=== PATIENT | male | born 1965 | race Caucasian/White ===

== ENCOUNTER 2018-04-22 13:22 | Emergency (ER) | payer OTHER, SELFPAY ==
[2018-04-22 13:29] VITALS: BP 172/108; PULSE 81; RESP 18; TEMP 36.7; O2SAT 99
--- NOTE | 2018-04-22 14:31 | ED.GENADUL ---
Disposition Clinical Impression: Hand laceration Disposition: HOME Condition: Stable Instructions: Care For Your Stitches (ED), Laceration (ED) Additional Instructions: Keep wound clean and dry and return in 7-10 days for suture removal. Please leave the initial dressing on for minimum of 24 hours before moving. Return immediately for any signs of infection otherwise take your antibiotics as prescribed and he may utilize [id number] acetaminophen or Motrin as needed for pain control. Prescriptions: Cephalexin [Keflex] 500 mg PO Q6H #11 cap Referrals: [facility] Emergency Dept. [Outside] (Return to the emergency department 7-10 days for suture removal. Return immediately for any signs of infection.) Medical Decision Making - Medical Decision Making 2 cm laceration dorsal aspect of right hand. Patient has full function and strength distal to the injury and while there is visible tendon in the wound there appears to be no damage and tendon is intact. Patient has no loss of sensation distal to the injury as well. See procedural note for closure of wound. Given potential for contaminated wound although no foreign materials were seen but occupation is very dirty environment patient placed upon Keflex for 3 days prophylactically. Otherwise patient encouraged to return in 7-10 days for suture removal. After discussion of diagnosis and plan of care with patient patient agreed and stated no further needs, questions, or concerns at this time. History of Present Illness - General Chief complaint: Laceration Stated complaint: LACERATION Time Seen by Provider: 04/22/18 13:37 Source: patient, RN notes reviewed Mode of arrival: ambulatory Limitations: no limitations - History of Present Illness Initial comments: n patient reports approximately 50 minutes prior to arrival he was holding a piece of metal while somebody was cutting it with a saws all in the saw excellently slipped lacerating the dorsal aspect of his left hand. He states full movement and sensation distal to the injury and no loss of strength but decent bleeding laceration. Patient does state that he had a tetanus within the last couple years. Patient denies any other injury or trauma. Onset/Timin -: minutes(s) Location: left, upper extremity Severity scale (1-10): 3 Quality: aching Consistency: constant Improves with: none Worsens with: none Associated Symptoms: denies other symptoms Treatments Prior to Arrival: none - Related Data Aspirin/Acetaminophen/Caffeine [Excedrin Migraine Caplet] 1 - 2 each PO PRN 07/11/13 Aspirin 325 mg PO DAILY 01/26/18 Ibuprofen [Motrin] 600 mg PO TID #15 tab 01/26/18 Amlodipine Besylate 5 mg PO DAILY #90 tab-cap 03/19/18 Losartan [Cozaar] 50 mg PO DAILY #90 tab-cap 03/19/18 Cephalexin [Keflex] 500 mg PO Q6H #11 cap 04/22/18 Allergies Allergy/AdvReac Type Severity Reaction Status Date / Time shellfish derived Allergy Severe THROAT Unverified 04/22/18 13:30 CLOSES Review of Systems Constitutional: no symptoms reported Respiratory: no symptoms reported Cardiovascular: denies: syncope Musculoskeletal: as per HPI Skin: as per HPI Comment: All other systems reviewed and negative Past Medical History - Past Medical History Medical history: hypertension Surgical history: non-contributory, other (Knee arthroscopy) - Social History Smoking status: current everyday smoker Alcohol use: occasionally Drug use: none Living Situation: lives with family General Exam - General Limitations: no limitations General appearance: alert, in no apparent distress - Head Head exam: Present: atraumatic, normocephalic - Respiratory Respiratory exam: Absent: respiratory distress - Cardiovascular Cardiovascular Exam: Present: regular rate, normal rhythm - Expanded Upper Extremity Exam Left Elbow exam: Present: normal inspection Forearm Wrist exam: Present: normal inspection Hand Wrist exam: Present: full ROM, laceration (2 cm laceration to the dorsal aspect of the second metacarpal that is approximately midshaft-to distal third.), other (Appropriate tendon strength and function to index finger.). Absent: abrasion, ecchymosis, deformity, crepidus, dislocation, erythema Neuro motor exam: Present: wrist extension intact, thumb opposition intact, thumb IP flexion intact, thumb adduction intact, fingers 2-5 abduction intact Neurosensory exam: Present: 2-point discrimination, radial nerve intact, ulnar nerve intact, median nerve intact Vascular: Present: normal capillary refill, radial pulse (2+) - Neurological Exam Neurological exam: Present: alert, oriented X3. Absent: altered - Skin Skin exam: Present: warm, dry Course Vital Signs - 24 hr 04/22/18 13:29 Temperature 36.7 C Pulse 81 Respiratory 18 Rate Blood Pressure 172/108 Pulse Oximetry 99 Procedures - Laceration Repair Consent Obtained: Verbal consent Copious Irrigation performed: Yes Laceration Depth: Tendon visible Bleeding Type/Amount: Moderate Complexity: Simple Anesthetic: Local, Lidocaine 1%, With Epi Amount of Anesthetic (mls): 4 Material: Vicryl (Ethilon) Suture Size: 4-0 Suture Number: 3
--- NOTE | 2018-04-22 14:34 | ED.GENADUL_ITS ---
Disposition Clinical Impression: Hand laceration Disposition: HOME Condition: Stable Instructions: Care For Your Stitches (ED), Laceration (ED) Additional Instructions: Keep wound clean and dry and return in 7-10 days for suture removal. Please leave the initial dressing on for minimum of 24 hours before moving. Return immediately for any signs of infection otherwise take your antibiotics as prescribed and he may utilize [id number] acetaminophen or Motrin as needed for pain control. Prescriptions: Cephalexin [Keflex] 500 mg PO Q6H #11 cap Referrals: [facility] Emergency Dept. [Outside] (Return to the emergency department 7-10 days for suture removal. Return immediately for any signs of infection.) Medical Decision Making - Medical Decision Making 2 cm laceration dorsal aspect of right hand. Patient has full function and strength distal to the injury and while there is visible tendon in the wound there appears to be no damage and tendon is intact. Patient has no loss of sensation distal to the injury as well. See procedural note for closure of wound. Given potential for contaminated wound although no foreign materials were seen but occupation is very dirty environment patient placed upon Keflex for 3 days prophylactically. Otherwise patient encouraged to return in 7-10 days for suture removal. After discussion of diagnosis and plan of care with patient patient agreed and stated no further needs, questions, or concerns at this time. History of Present Illness - General Chief complaint: Laceration Stated complaint: LACERATION Time Seen by Provider: 04/22/18 13:37 Source: patient, RN notes reviewed Mode of arrival: ambulatory Limitations: no limitations - History of Present Illness Initial comments: n patient reports approximately 50 minutes prior to arrival he was holding a piece of metal while somebody was cutting it with a saws all in the saw excellently slipped lacerating the dorsal aspect of his left hand. He states full movement and sensation distal to the injury and no loss of strength but decent bleeding laceration. Patient does state that he had a tetanus within the last couple years. Patient denies any other injury or trauma. Onset/Timin -: minutes(s) Location: left, upper extremity Severity scale (1-10): 3 Quality: aching Consistency: constant Improves with: none Worsens with: none Associated Symptoms: denies other symptoms Treatments Prior to Arrival: none - Related Data Aspirin/Acetaminophen/Caffeine [Excedrin Migraine Caplet] 1 - 2 each PO PRN Aspirin 325 mg PO DAILY 01/26/18 Ibuprofen [Motrin] 600 mg PO TID #15 tab 01/26/18 Amlodipine Besylate 5 mg PO DAILY #90 tab-cap 03/19/18 Losartan [Cozaar] 50 mg PO DAILY #90 tab-cap 03/19/18 Cephalexin [Keflex] 500 mg PO Q6H #11 cap 04/22/18 Allergies Allergy/AdvReac Type Severity Reaction Status Date / Time shellfish derived Allergy Severe THROAT Unverified 04/22/18 13:30 CLOSES Review of Systems Constitutional: no symptoms reported Respiratory: no symptoms reported Cardiovascular: denies: syncope Musculoskeletal: as per HPI Skin: as per HPI Comment: All other systems reviewed and negative Past Medical History - Past Medical History Medical history: hypertension Surgical history: non-contributory, other (Knee arthroscopy) - Social History Smoking status: current everyday smoker Alcohol use: occasionally Drug use: none Living Situation: lives with family General Exam - General Limitations: no limitations General appearance: alert, in no apparent distress - Head Head exam: Present: atraumatic, normocephalic - Respiratory Respiratory exam: Absent: respiratory distress - Cardiovascular Cardiovascular Exam: Present: regular rate, normal rhythm - Expanded Upper Extremity Exam Left Elbow exam: Present: normal inspection Forearm Wrist exam: Present: normal inspection Hand Wrist exam: Present: full ROM, laceration (2 cm laceration to the dorsal aspect of the second metacarpal that is approximately midshaft-to distal third.) , other (Appropriate tendon strength and function to index finger.). Absent: abrasion, ecchymosis, deformity, crepidus, dislocation, erythema Neuro motor exam: Present: wrist extension intact, thumb opposition intact, thumb IP flexion intact, thumb adduction intact, fingers 2-5 abduction intact Neurosensory exam: Present: 2-point discrimination, radial nerve intact, ulnar nerve intact, median nerve intact Vascular: Present: normal capillary refill, radial pulse (2+) - Neurological Exam Neurological exam: Present: alert, oriented X3. Absent: altered - Skin Skin exam: Present: warm, dry Course Vital Signs - 24 hr 04/22/18 13:29 Temperature 36.7 C Pulse 81 Respiratory 18 Rate Blood Pressure 172/108 Pulse Oximetry 99 Procedures - Laceration Repair Consent Obtained: Verbal consent Copious Irrigation performed: Yes Laceration Depth: Tendon visible Bleeding Type/Amount: Moderate Complexity: Simple Anesthetic: Local, Lidocaine 1%, With Epi Amount of Anesthetic (mls): 4 Material: Vicryl (Ethilon) Suture Size: 4-0 Suture Number: 3
[2018-04-22] MEDS: Cephalexin 500 MG CAP PO (14:39)
[2018-04-22 14:42] VITALS: BP 201/98; PULSE 74; RESP 18; TEMP 36.6; O2SAT 98
== END 2018-04-22 14:48 | disposition home or self-care (01) ==
PROVIDERS: Emergency Provider Student in an Organized Health Care Education/Training Program; PCP Emergency Medicine
DX: S61.412A Laceration without foreign body of left hand, initial encounter (principal); W31.1XXA Contact with metalworking machines, initial encounter; I10 Essential (primary) hypertension
CPT/HCPCS: 12001; 99283

== ENCOUNTER 2018-05-01 15:45 | Emergency (ER) | payer OTHER, SELFPAY ==
[2018-05-01 15:49] VITALS: BP 143/91; PULSE 62; RESP 14; TEMP 36.9; O2SAT 99
--- NOTE | 2018-05-01 15:50 | ED.GENADUL ---
Disposition Clinical Impression: Encounter for removal of sutures Disposition: HOME Condition: Stable Instructions: Stitches Removal (ED) Additional Instructions: Watch for any signs of infection return immediately if these occur. Referrals: Carlos Maki DO [Primary Care Provider] - (As needed for reassessment) Medical Decision Making - Medical Decision Making Patient presenting to the emergency department for removal of sutures. I placed the sutures 9 days ago. Wound has mild erythema surrounding the room but no purulent drainage, no streaking redness, patient denying fever chills. 3 sutures were removed and wound edges remained intact with no dehiscence or no complications. Patient was encouraged to watch for any signs of infection and return immediately if these occur. After discussion of diagnosis and plan of care with patient patient agreed and stated no further needs, questions, or concerns at this time. History of Present Illness - General Stated complaint: SUTURE REMOVAL Time Seen by Provider: 05/01/18 15:46 Source: patient, RN notes reviewed Mode of arrival: ambulatory Limitations: no limitations - History of Present Illness Initial comments: Patient presenting the emergency department for removal of stitches. Patient has laceration to the dorsal aspect of the left hand. Patient denies any pain or discomfort or signs of infection that occurred. Onset/Timin -: days(s) Location: left, upper extremity Associated Symptoms: denies other symptoms Treatments Prior to Arrival: none - Related Data Aspirin/Acetaminophen/Caffeine [Excedrin Migraine Caplet] 1 - 2 each PO PRN 07/11/13 Aspirin 325 mg PO DAILY 01/26/18 Ibuprofen [Motrin] 600 mg PO TID #15 tab 01/26/18 Amlodipine Besylate 5 mg PO DAILY #90 tab-cap 03/19/18 Losartan [Cozaar] 50 mg PO DAILY #90 tab-cap 03/19/18 Cephalexin [Keflex] 500 mg PO Q6H #11 cap 04/22/18 Allergies Allergy/AdvReac Type Severity Reaction Status Date / Time shellfish derived Allergy Severe THROAT Unverified 04/22/18 13:30 CLOSES Review of Systems Skin: as per HPI Past Medical History - Past Medical History Medical history: hypertension Surgical history: non-contributory, other (Knee arthroscopy) - Social History Alcohol use: occasionally Drug use: none General Exam - Extremities Exam Extremities exam: Present: full ROM, normal capillary refill, other (Patient has a laceration healing wound to the dorsal aspect of the left hand with [address] No dehiscence, no purulent drainage, and only very mild erythema surrounding the wound is noted.)
[2018-05-01 15:54] VITALS: BP 143/91; PULSE 62; RESP 14; TEMP 36.9; O2SAT 99
== END 2018-05-01 15:54 | disposition home or self-care (01) ==
PROVIDERS: Emergency Provider Emergency Medicine; PCP Emergency Medicine
DX: S61.412D Laceration without foreign body of left hand, subsequent encounter (principal); W31.1XXD Contact with metalworking machines, subsequent encounter; I10 Essential (primary) hypertension; Z48.02 Encounter for removal of sutures

== ENCOUNTER 2018-09-19 21:06 | Emergency (ER) | payer OTHER, SELFPAY ==
--- NOTE | 2018-09-19 21:10 | W.ED.GENAD ---
Discharge Plan Disposition Patient Disposition: HOME Condition: Stable Discharge Details Chief Complaint: Laceration Clinical Impression: Laceration of right thumb Primary Care Provider: Carlos Maki ED Provider: Darek Broussard Home Meds and New Rx's Prescriptions: No Action Excedrin Migraine 1 EACH tablet 1 - 2 ea PO PRN RF: 0 amlodipine 5 MG tablet 5 mg PO DAILY Qty: 90 RF: 4 aspirin 325 MG tablet 325 mg PO DAILY RF: 0 Discharge Instructions Instructions: Laceration (ED) Additional Instructions: return here in 7-10 days to have the sutures removed if redness spreads down the hand or you have yellow/white discharge return to the emergency department Medical Decision Making pt states earlier today he got his right posterior proximal thumb stuck in a valve of a fire truck. Did not fall or hit head. Has a 2cm v shaped laceration of proximal posterior thumb. Full rom and sensation is intact, doubt tendon or nerve injury. Will require sutures to repair. He states he has had tetanus vaccine within 5 years Differential Diagnosis laceration, abrasion HPI General Mode of arrival: ambulatory. Date/Time Provider Initiated Documentation: 09/19/18 21:10. Limitations to Documentation: no limitations. Information obtained by: patient. History of Present Illness 53 year old M presents to the emergency department with the chief complaint of right thumb lac, described as moderate, with intensity rated at 4. Quality is described as aching, and is localized to the right and upper extremity. Patient extremity. Patient started experiencing this hour(s) (4) and it has been constant. No relieving factors improve symptom(s), No exacerbating factors reported . Patient notes no other symptoms.. Patient did receive the following treatments prior to arrival, none Related Data Home Medications Medication Instructions Recorded Confirmed Excedrin Migraine 1 - 2 ea PO PRN 07/11/13 09/19/18 aspirin 325 mg PO DAILY 01/26/18 09/19/18 amlodipine 5 mg PO DAILY #90 tab-cap 03/19/18 09/19/18 Previous Rx's Medication Instructions Recorded amlodipine 5 mg PO DAILY #90 tab-cap 03/19/18 Allergies Allergy/AdvReac Type Severity Reaction Status Date / Time shellfish derived Allergy Severe THROAT Unverified 09/19/18 21:21 CLOSES Review of Systems Review of Systems All systems reviewed & are unremarkable except as noted in HPI and below Constitutional Denies chills, Denies fever(s) and Denies weakness ENT Denies change in voice Cardiovascular Denies chest pain and Denies dyspnea Respiratory Denies dyspnea Gastrointestinal Denies abdominal pain, Denies nausea and Denies vomiting Musculoskeletal Denies joint swelling Neurologic Denies weakness Psychiatric Denies depression [facility] Surgical History Arthroplasty of knee (~2005) Arthroscopy Exam Const General: no acute distress Orientation: alert HENMT Head: normal to inspection Ears: external ears normal General nose exam: external nose normal Mouth: moist mucous membranes Eyes General: appearance normal, both eyes and all related structures Neck Neck: normal visual inspection Resp Effort & Inspection: normal respiratory effort and able to speak in complete sentences Cardio Rate: regular rate Skin General skin exam: no rashes or lesions noted Neuro General: alert and oriented x3 Extrem General: full ROM and normal capillary refill Psych Mental Status: mental status grossly normal Procedures Laceration Laceration 1: Site: upper extremity Side (If applicable): right Size (cm): 2 Description: other (v shaped) Depth: simple, single layer Local Anesthetic: Lidocaine 1% and with Epi Amount of anesthesia used (mL): 5 Pre-repair: wound explored and irrigated extensively Skin layer closed with: nylon Size (cm): 5-0 Number of sutures: 3 Technique: simple, interrupted and other (also used skin adhesive to close the wound)
[2018-09-19 21:17] VITALS: BP 128/94; PULSE 90; RESP 15; TEMP 36.6; O2SAT 96
--- NOTE | 2018-09-19 21:24 | ED.GENADUL_ITS ---
Discharge Plan Disposition Patient Disposition: HOME Condition: Stable Discharge Details Chief Complaint: Laceration Clinical Impression: Laceration of right thumb Primary Care Provider: Carlos Maki ED Provider: Darek Broussard Home Meds and New Rx's Prescriptions: No Action Excedrin Migraine 1 EACH tablet 1 - 2 ea PO PRN RF: 0 amlodipine 5 MG tablet 5 mg PO DAILY Qty: 90 RF: 4 aspirin 325 MG tablet 325 mg PO DAILY RF: 0 Discharge Instructions Instructions: Laceration (ED) Additional Instructions: return here in 7-10 days to have the sutures removed if redness spreads down the hand or you have yellow/white discharge return to the emergency department Medical Decision Making pt states earlier today he got his right posterior proximal thumb stuck in a valve of a fire truck. Did not fall or hit head. Has a 2cm v shaped laceration of proximal posterior thumb. Full rom and sensation is intact, doubt tendon or nerve injury. Will require sutures to repair. He states he has had tetanus vaccine within 5 years Differential Diagnosis laceration, abrasion HPI General Mode of arrival: ambulatory . Date/Time Provider Initiated Documentation: 09/19/18 21:10 . Limitations to Documentation: no limitations . Information obtained by: patient . History of Present Illness 53 year old M presents to the emergency department with the chief complaint of right thumb lac, described as moderate, with intensity rated at 4. Quality is described as aching, and is localized to the right and upper extremity. Patient extremity. Patient started experiencing this hour(s) (4) and it has been constant. No relieving factors improve symptom(s), No exacerbating factors reported . Patient notes no other symptoms.. Patient did receive the following treatments prior to arrival, none Related Data Home Medications Medication Instructions Recorded Confirmed Excedrin Migraine 1 - 2 ea PO PRN 07/11/13 09/19/18 aspirin 325 mg PO DAILY 01/26/18 09/19/18 amlodipine 5 mg PO DAILY #90 tab-cap 03/19/18 09/19/18 Previous Rx's Medication Instructions Recorded amlodipine 5 mg PO DAILY #90 tab-cap 03/19/18 Allergies Allergy/AdvReac Type Severity Reaction Status Date / Time shellfish derived Allergy Severe THROAT Unverified 09/19/18 21:21 CLOSES Review of Systems Review of Systems All systems reviewed & are unremarkable except as noted in HPI and below Constitutional Denies chills, Denies fever(s) and Denies weakness ENT Denies change in voice Cardiovascular Denies chest pain and Denies dyspnea Respiratory Denies dyspnea Gastrointestinal Denies abdominal pain, Denies nausea and Denies vomiting Musculoskeletal Denies joint swelling Neurologic Denies weakness Psychiatric Denies depression [facility] Surgical History Arthroplasty of knee (~2005) Arthroscopy Exam Const General: no acute distress Orientation: alert HENMT Head: normal to inspection Ears: external ears normal General nose exam: external nose normal Mouth: moist mucous membranes Eyes General: appearance normal, both eyes and all related structures Neck Neck: normal visual inspection Resp Effort & Inspection: normal respiratory effort and able to speak in complete sentences Cardio Rate: regular rate Skin General skin exam: no rashes or lesions noted Neuro General: alert and oriented x3 Extrem General: full ROM and normal capillary refill Psych Mental Status: mental status grossly normal Procedures Laceration Laceration 1: Site: upper extremity Side (If applicable): right Size (cm): 2 Description: other (v shaped) Depth: simple, single layer Local Anesthetic: Lidocaine 1% and with Epi Amount of anesthesia used (mL): 5 Pre-repair: wound explored and irrigated extensively Skin layer closed with: nylon Size (cm): 5-0 Number of sutures: 3 Technique: simple, interrupted and other (also used skin adhesive to close the wound)
[2018-09-19 21:46] VITALS: BP 128/94; PULSE 90; RESP 15; TEMP 36.6; O2SAT 96
== END 2018-09-19 21:47 | disposition home or self-care (01) ==
LOC: ER 21:51
PROVIDERS: Emergency Provider Emergency Medicine; PCP Emergency Medicine
DX: S61.011A Laceration without foreign body of right thumb without damage to nail, initial encounter (principal); W26.9XXA Contact with unspecified sharp object(s), initial encounter
CPT/HCPCS: 12001

== ENCOUNTER 2019-02-22 21:26 | Emergency (ER) | payer OTHER, SELFPAY ==
[2019-02-22 21:32] VITALS: BP 155/99; PULSE 65; RESP 16; TEMP 36.7; O2SAT 100
[2019-02-22] MEDS: Tetracaine 0.5% 4 ML BTL (22:00)
[2019-02-22] MEDS: Erythromycin Ophth Oint 3.5 GM TUBE (22:00)
[2019-02-22] MEDS: Balanced Salt Solution 15 ML BTL (22:00)
--- NOTE | 2019-02-22 22:40 | W.ED.GENAD ---
Discharge Plan Disposition Patient Disposition: HOME Condition: Stable Discharge Details Chief Complaint: EyeProblem Clinical Impression: Corneal abrasion, left Primary Care Provider: Carlos Maki ED Provider: Mikey Quinones Home Meds and New Rx's Prescriptions: No Action Excedrin Migraine 1 EACH tablet 1 - 2 ea PO PRN RF: 0 amlodipine 5 MG tablet 5 mg PO DAILY Qty: 90 RF: 4 aspirin 325 MG tablet 325 mg PO DAILY RF: 0 Discharge Instructions Instructions: Corneal Abrasion (ED) Additional Instructions: Please use the provided ointment 4 times daily for the next 5 to 7 days. You should call [facility] tomorrow for reevaluation of your symptoms and return to the emergency department for any new or significant worsening of symptoms. Referrals: [facility] [Outside] - 1 day (call the office tomorrow morning for recheck ) Discharge Data Discharge Date/Time-TO BE ENTERED AT DEPARTURE: 02/22/19 22:58 Medical Decision Making Approximately 5 hours prior to arrival patient was cutting with a welding torch when a small jesi of metal struck his eye. Initially he felt the hot feeling but as the night went on pain increase. Patient denies any change in his vision and states he has poor vision in that eye anyways. Physical exam shows no obvious trauma to the head, with slit-lamp examination and dye application there is a corneal abrasion midline approximately 6:00 central to the cornea. Otherwise there is no obvious visible foreign body noted on exam and EOMs intact, no other acute findings. Patient's tetanus is up-to-date. Patient started on erythromycin ointment and was informed that he should follow-up with [facility] tomorrow for reevaluation. Return precautions discussed. After discussion of diagnosis and plan of care patient has no further needs, questions, or concerns and states clear understanding to return to the emergency department for any worsening symptoms. HPI General Mode of arrival: ambulatory. Date/Time Provider Initiated Documentation: 02/22/19 21:31. Limitations to Documentation: no limitations. Information obtained by: patient and RN notes reviewed. History of Present Illness 53 year old M presents to the emergency department with the chief complaint of left eye pain, possible foreign body, described as moderate, with intensity rated at 6. Quality is described as burning and sharp, and is localized to the eyes and left. Patient started experiencing this hour(s) (5) and it has been constant. Patient notes no other symptoms.. Patient did receive the following treatments prior to arrival, none Related Data Home Medications Medication Instructions Recorded Confirmed Excedrin Migraine 1 - 2 ea PO PRN 07/11/13 02/22/19 aspirin 325 mg PO DAILY 01/26/18 02/22/19 amlodipine 5 mg PO DAILY #90 tab-cap 03/19/18 02/22/19 Previous Rx's Medication Instructions Recorded amlodipine 5 mg PO DAILY #90 tab-cap 03/19/18 Allergies Allergy/AdvReac Type Severity Reaction Status Date / Time shellfish derived Allergy Severe THROAT Unverified 02/22/19 21:39 CLOSES General Stated Complaint: EyeProblem BENNY: 4 Review of Systems Constitutional Denies chills, Denies fever(s) and Denies headache(s) Eyes Reports as per HPI, Denies change in vision, Reports irritation, Denies loss of peripheral vision, Denies other visual disturbances, Reports eye pain, Denies requires corrective lenses, Denies seeing flashes and Reports photophobia ENT Denies headache(s) Neurologic Denies headache(s) [facility] Medical History Hypertension (Chronic) Surgical History Arthroplasty of knee (~2005) Arthroscopy Social History Smoking/Tobacco Use Status: Current every day Tobacco Type: smokeless tobacco Alcohol Intake: never Drug use: Never Substance use type: does not use Do you feel safe at home: Yes Do you feel safe in your relationship?: Yes Exam [facility] Head: normocephalic and atraumatic Eyes Visual Cox: normal visual cox by confrontation Alignment and Position: alignment normal and position normal Periorbital: periorbital findings normal Eyelids: eyelids normal Conjunctivae: conjunctivae normal Sclera: sclerae normal Cornea: corneas abnormal on the left fluorescein used and abrasion central, linear and at the following clock position (6); with no foreign body noted and fluorescein used Pupils: PERRL EOM: EOM intact bilaterally Course Vital Signs Temperature 36.7 C 02/22/19 21:32 Pulse 65 02/22/19 21:32 Respiratory Rate 16 02/22/19 21:32 Blood Pressure 155/99 H 02/22/19 21:32 Pulse Oximetry 100 02/22/19 21:32 Temperature 36.7 C 02/22/19 21:32 Temperature Source Skin 02/22/19 21:32 Pulse 65 02/22/19 21:32 Respiratory Rate 16 02/22/19 21:32 Respiratory Effort Non-Labored 02/22/19 21:39 Blood Pressure 155/99 H 02/22/19 21:32 Blood Pressure Position Sitting 02/22/19 21:32 Pulse Oximetry 100 02/22/19 21:32 Oxygen Delivery Method Room Air 02/22/19 21:32 Oxygen Flow Rate 0 02/22/19 21:32 Pain Level 6 02/22/19 21:32 Comment 02/22/19 21:32
--- NOTE | 2019-02-22 22:43 | ED.GENADUL_ITS ---
Discharge Plan Disposition Patient Disposition: HOME Condition: Stable Discharge Details Chief Complaint: EyeProblem Clinical Impression: Corneal abrasion, left Primary Care Provider: Carlos Maki ED Provider: Mikey Quinones Home Meds and New Rx's Prescriptions: No Action Excedrin Migraine 1 EACH tablet 1 - 2 ea PO PRN RF: 0 amlodipine 5 MG tablet 5 mg PO DAILY Qty: 90 RF: 4 aspirin 325 MG tablet 325 mg PO DAILY RF: 0 Discharge Instructions Instructions: Corneal Abrasion (ED) Additional Instructions: Please use the provided ointment 4 times daily for the next 5 to 7 days. You should call [facility] tomorrow for reevaluation of your symptoms and return to the emergency department for any new or significant worsening of symptoms. [facility] - [facility] (call the office tomorrow morning for recheck ) Discharge Data Discharge Date/Time-TO BE ENTERED AT DEPARTURE: 02/22/19 22:58 Medical Decision Making Approximately 5 hours prior to arrival patient was cutting with a welding torch when a small jesi of metal struck his eye. Initially he felt the hot feeling but as the night went on pain increase. Patient denies any change in his vision and states he has poor vision in that eye anyways. Physical exam shows no obvious trauma to the head, with slit-lamp examination and dye application there is a corneal abrasion midline approximately 6:00 central to the cornea. Otherwise there is no obvious visible foreign body noted on exam and EOMs intact, no other acute findings. Patient's tetanus is up-to-date. Patient started on erythromycin ointment and was informed that he should follow-up with [facility] tomorrow for reevaluation. Return precautions discussed. After discussion of diagnosis and plan of care patient has no further needs, questions, or concerns and states clear understanding to return to the emergency department for any worsening symptoms. HPI General Mode of arrival: ambulatory . Date/Time Provider Initiated Documentation: 02/22/19 21:31 . Limitations to Documentation: no limitations . Information obtained by: patient and RN notes reviewed . History of Present Illness 53 year old M presents to the emergency department with the chief complaint of left eye pain, possible foreign body, described as moderate, with intensity rated at 6. Quality is described as burning and sharp, and is localized to the eyes and left. Patient started experiencing this hour(s) (5) and it has been constant. Patient notes no other symptoms.. Patient did receive the following treatments prior to arrival, none Related Data Home Medications Medication Instructions Recorded Confirmed Excedrin Migraine 1 - 2 ea PO PRN 07/11/13 02/22/19 aspirin 325 mg PO DAILY 01/26/18 02/22/19 amlodipine 5 mg PO DAILY #90 tab-cap 03/19/18 02/22/19 Previous Rx's Medication Instructions Recorded amlodipine 5 mg PO DAILY #90 tab-cap 03/19/18 Allergies Allergy/AdvReac Type Severity Reaction Status Date / Time shellfish derived Allergy Severe THROAT Unverified 02/22/19 21:39 CLOSES General Stated Complaint: EyeProblem BENNY: 4 Review of Systems Constitutional Denies chills, Denies fever(s) and Denies headache(s) Eyes Reports as per HPI, Denies change in vision, Reports irritation, Denies loss of peripheral vision, Denies other visual disturbances, Reports eye pain, Denies requires corrective lenses, Denies seeing flashes and Reports photophobia ENT Denies headache(s) Neurologic Denies headache(s) [facility] Medical History Hypertension (Chronic) Surgical History Arthroplasty of knee (~2005) Arthroscopy Social History Smoking/Tobacco Use Status: Current every day Tobacco Type: smokeless tobacco Alcohol Intake: never Drug use: Never Substance use type: does not use Do you feel safe at home: Yes Do you feel safe in your relationship?: Yes Exam [facility] Head: normocephalic and atraumatic Eyes Visual Cox: normal visual cox by confrontation Alignment and Position: alignment normal and position normal Periorbital: periorbital findings normal Eyelids: eyelids normal Conjunctivae: conjunctivae normal Sclera: sclerae normal Cornea: corneas abnormal on the left fluorescein used and abrasion central, linear and at the following clock position (6); with no foreign body noted and fluorescein used Pupils: PERRL EOM: EOM intact bilaterally Course Vital Signs Temperature 36.7 C 02/22/19 21:32 Pulse 65 02/22/19 21:32 Respiratory Rate 16 02/22/19 21:32 Blood Pressure 155/99 H 02/22/19 21:32 Pulse Oximetry 100 02/22/19 21:32 Temperature 36.7 C 02/22/19 21:32 Temperature Source Skin 02/22/19 21:32 Pulse 65 02/22/19 21:32 Respiratory Rate 16 02/22/19 21:32 Respiratory Effort Non-Labored 02/22/19 21:39 Blood Pressure 155/99 H 02/22/19 21:32 Blood Pressure Position Sitting 02/22/19 21:32 Pulse Oximetry 100 02/22/19 21:32 Oxygen Delivery Method Room Air 02/22/19 21:32 Oxygen Flow Rate 0 02/22/19 21:32 Pain Level 6 02/22/19 21:32 Comment 02/22/19 21:32
[2019-02-22] MEDS: Fluorescein STRIPS 100/BOX 1 MG (23:15)
== END 2019-02-22 22:58 | disposition home or self-care (01) ==
PROVIDERS: Emergency Provider Nurse Practitioner Family; PCP Emergency Medicine
DX: S05.02XA Injury of conjunctiva and corneal abrasion without foreign body, left eye, initial encounter (principal); X58.XXXA Exposure to other specified factors, initial encounter
CPT/HCPCS: 99283

== ENCOUNTER 2020-11-05 15:40 | Outpatient (CLI) | payer SELFPAY ==
--- NOTE | 2020-11-05 15:30 | RT.EKG_ITS ---
APPROVED REPORT Exam: Resting ECG Patient Location: O HR:64 bpm ECG Measurements Heart Rate 64 AXIS KS 163 P 59 QRSd 94 QRS 20 QT 386 T 37 QTc 399 Conclusion Sinus rhythm...normal P axis, V-rate 60- 99
== END 2020-11-05 15:41 | disposition home or self-care (01) ==
LOC: DI.CM 15:41
PROVIDERS: PCP Emergency Medicine; Visit Provider Nurse Practitioner Family
DX: R07.9 Chest pain, unspecified (principal)
CPT/HCPCS: 93010

== ENCOUNTER 2020-11-08 01:38 | Outpatient (CLI) | payer SELFPAY ==
--- NOTE | 2020-11-08 13:37 | DI.RAD_ITS ---
EXAM: XR CHEST 2V PA LATERAL CLINICAL HISTORY: chest pain, s/p injury, V89.2XXA. TECHNIQUE: 2D digital imaging was performed. COMPARISON: CR CHEST 2 VIEWS PA,LAT from 11/12/2008 FINDINGS: Heart size is normal. The mediastinum is not widened. Lungs are clear. No infiltrates nor pleural effusions. Pneumothorax. No rib fractures evident. One lateral view inferior aspect of the sternum there is a subtle osseous irregularity which is more evident than on the actual dedicated sternal views. This is in the lower sternum. Correlation with site of tenderness is recommended IMPRESSION: No acute pulmonary findings.Sternal findings as above. Correlation with site of tenderness is recomm ended DATA REPOSITORY: RADIATION DOSE DELIVERED:
--- NOTE | 2020-11-08 13:37 | DI.RAD_ITS ---
EXAM: XR STERNUM CLINICAL HISTORY: sternum pain, s/p injury, V89.2XXA. TECHNIQUE: 2D digital imaging was performed. COMPARISON: No exams were available for comparison FINDINGS: No obvious sternal fracture evident on these images IMPRESSION: DATA REPOSITORY: RADIATION DOSE DELIVERED:
== END 2020-11-08 01:39 ==
LOC: DI 01:38
PROVIDERS: PCP Emergency Medicine; Visit Provider Nurse Practitioner Family
DX: R07.89 Other chest pain (principal)
CPT/HCPCS: 71046; 71120

== ENCOUNTER 2020-12-06 13:46 | Emergency (ER) | payer SELFPAY ==
[2020-12-06] VITALS (16 sets, daily range): BP systolic 134–144; BP diastolic 86–92; PULSE 77–123; RESP 16–30; TEMP 37.7; O2SAT 92–100
--- NOTE | 2020-12-06 14:00 | DI.RAD_ITS ---
EXAM: XR PORTABLE CHEST AP CLINICAL HISTORY: cough. TECHNIQUE: 2D digital imaging was performed. COMPARISON: CR XR STERNUM from 11/08/2020 CR XR CHEST 2V PA LATERAL from 11/08/2020 FINDINGS: Heart size is normal. The mediastinum is not widened. There is platelike atelectasis or scarring in the right lung base. No other pulmonary findings on th is portable view. No pneumothorax. No obvious fractures. IMPRESSION: Platelike atelectasis in the right lung base. No other significant focal pulmonary findings. DATA REPOSITORY: RADIATION DOSE DELIVERED: All CT scans at this facility use at least one of these dose optimization techniques: automated exposure control; mA and/or kV adjustment per patient size (includes targeted e xams where dose is matched to clinical indication); or iterative reconstruction.
[2020-12-06 14:11] LABS: Lactate 1.1 mmol/L (0.6-1.4)
[2020-12-06 14:15] LABS: Abs Immature Grans 0.01 10^3/uL (0.0-0.06); Absolute Basophil Count 0.01 10^3/uL (0.0-0.2); Absolute Lymphocyte Count 0.73 10^3/uL (1.2-3.4); Absolute Monocyte Count 0.41 10^3/uL (0.1-0.8); Absolute Neutrophil Count 2.51 10^3/uL (1.2-6.7); Basophils % 0.3; HCT 39.6 % (40.0-50.0); HGB 13.4 g/dL (13.5-17.5); Immature Grans % 0.3; Lymphocytes % 19.9; MCH 28.9 pg (27.0-33.0); MCHC 33.8 % (32.0-36.0); MCV 85.5 fL (80-95); MPV 10.6 fL (8.0-11.0); Monocytes % 11.2; Neutrophils % 68.3; Nucleated RBC 0 %; RBC 4.63 10^6/uL (4.36-5.78); RDW 13.5 % (11.8-14.1); RDW-SD 42.4 fL; WBC 3.67 10^3/uL (4.4-10.8)
--- NOTE | 2020-12-06 14:15 | RT.EKG_ITS ---
APPROVED REPORT Exam: Resting ECG Patient Location: E HR:91 bpm ECG Measurements Heart Rate 91 AXIS NV 65 P 75 QRSd 121 QRS 14 QT 332 T 51 QTc 409 Conclusion Sinus rhythm...normal P axis, V-rate 60- 99 Nonspecific intraventricular conduction delay...QRSd >115mS, not LBBB/RBBB Abnormal T, consider ischemia, lateral leads...T <-0.20mV, I aVL V5 V6 sinus rhythm at 91, normal axis, nonspecific ST changes, no STEMI, nondiagnostic EKG
[2020-12-06 14:16] LABS: Platelet Count 140 10^3/uL (130-400)
[2020-12-06] MEDS: Normal Saline 1,000 ML 1000 ML IV (14:26)
[2020-12-06 14:29] LABS: ALT 48 U/L (16-63); AST 31 U/L (15-37); Albumin 3.7 g/dL (3.4-5.0); Alkaline Phosphatase 110 U/L (46-116); Anion Gap 9.8 mmol/L (3-11); BUN 21 mg/dL (7-18); Bilirubin, Total 0.4 mg/dL (0.2-1.0); CO2 26.2 mmol/L (21.0-32.0); CREATININE 1.2 mg/dL (0.70-1.30); Calcium 8.6 mg/dL (8.5-10.1); Chloride 103 mmol/L (98-107); Glucose 119 mg/dL (74-106); Potassium 3.6 mmol/L (3.5-5.1); Sodium 139 mmol/L (136-145); Total Protein 7.4 g/dL (6.4-8.2)
[2020-12-06 14:33] LABS: Bilirubin Negative (Negative); Blood Negative (Negative); Clarity Clear (Clear); Glucose Negative (Negative); Ketones Trace mg/dL (Negative); Leukocyte Esterase Negative (Negative); Nitrite Negative (Negative); Specific Gravity >= 1.030 (1.005-1.025)
--- NOTE | 2020-12-06 14:33 | W.ED.GENAD ---
Discharge Plan Disposition Patient Disposition: HOME Condition: Stable Discharge Details Clinical Impression: Cough, Body aches Primary Care Provider: Carlos Maki ED Provider: Lisa Washington Home Meds and New Rx's Prescriptions: New doxycycline hyclate 100 mg tablet 100 mg PO BID Qty: 19 RF: 0 Continued lisinopril 20 mg tablet 20 mg PO DAILY Qty: 30 RF: 0 Excedrin Migraine 1 EACH tablet 1 - 2 ea PO PRN RF: 0 amlodipine 5 mg tablet 5 mg PO DAILY Qty: 90 RF: 4 Discharge Instructions Instructions: Fever in Adults (ED), Pneumonia (ED), Acute Cough (ED) Additional Instructions: Please return immediately to the emergency department if you develop any new or worsening symptoms, if your condition does not improve as expected, or if you become otherwise concerned. It is extremely important that you call soon as possible to make an appointment to be seen in follow-up for this visit by your primary care doctor. Referrals: Carlos Maki, [Primary Care Provider] - Discharge Data Discharge Date/Time-TO BE ENTERED AT DEPARTURE: 12/06/20 16:15 Medical Decision Making Alexis Sanchez is a 55 y/o man with h/o HTN who presented to the emergency department with fever, chills, and cough for 6 days. On exam Pt is well and non-toxic appearing. Tachycardic at triage, HR 90s during my encounter. No respiratory distress. No peripheral edema. Concern for COVID, PNA, flu, dehydration, electrolyte dereangement, other. Possible early sepsis given tachycardia. Exam/hx at this time is not c/w pulmonary embolism, acute coronary syndrome, meningitis, SAH, acute aortic pathology. EKG okay. Plan for screening labs, CXR, IVF hydration, UA. COVID negative. Mild leukopenia at 3.67. Normal lactate. Normal AG. CXR with atelectasis. Plan for doxycycline for possible occult PNA given cough and reported fevers. Possible false negative COVID, counseled Pt extensively re: RTED precautions and socially isolating while symptomatic. Ambulatory POX was normal with O2 sats 99% on room air while walking per nurse, no desats. I had a lengthy discussion with Patient regarding return to emergency department precautions, home care, and importance of outpatient follow-up. Pt verbalizes understanding of the plan and is amenable. Patient discharged to home with clear plan for outpatient follow-up. All questions were answered. Disposition decision was made weighing the risks and benefits of hospitalization versus outpatient treatment, the risk for further decompensation, and the patient's wishes. Pt walked out of the emergency department without issue. Medical Records Medical records reviewed: Yes I reviewed the patient's medical records. Imaging Data Radiologic Study: Attestation: I personally reviewed and interpreted this imaging study as follows: Radiologist's impression: EXAM: XR PORTABLE CHEST AP CLINICAL HISTORY: cough. TECHNIQUE: 2D digital imaging was performed. COMPARISON: CR XR STERNUM from 11/08/2020 CR XR CHEST 2V PA LATERAL from 11/08/2020 FINDINGS: Heart size is normal. The mediastinum is not widened. There is platelike atelectasis or scarring in the right lung base. No other pulmonary findings on this portable view. No pneumothorax. No obvious fractures. IMPRESSION: Platelike atelectasis in the right lung base. No other significant focal pulmonary findings. Lab Data Lab results reviewed: Yes I reviewed the patient's lab results. Labs: 12/06/20 14:48 Blood Blood Culture - Pending 12/06/20 14:42 Blood Blood Culture - Pending Laboratory Tests Range/Units 12/06/20 12/06/20 12/06/20 14:00 14:00 14:00 WBC (4.4-10.8) 10^3/uL 3.67 L RBC (4.36-5.78) 10^6/uL 4.63 Hgb (13.5-17.5) g/dL 13.4 L Hct (40.0-50.0) % 39.6 L MCV (80-95) fL 85.5 MCH (27.0-33.0) pg 28.9 MCHC (32.0-36.0) % 33.8 RDW (11.8-14.1) % 13.5 Plt Count (130-400) 10^3/uL 140 MPV (8.0-11.0) fL 10.6 Immature Gran % 0.3 Neutrophils % 68.3 Lymphocytes % 19.9 Monocytes % 11.2 Eosinophils % 0.0 Basophils % 0.3 Nucleated RBC % % 0 Absolute Neutrophils (1.2-6.7) 10^3/uL 2.51 Absolute Lymphocytes (1.2-3.4) 10^3/uL 0.73 L Absolute Monocytes (0.1-0.8) 10^3/uL 0.41 Absolute Eosinophils (0.0-0.7) 10^3/uL 0.00 Absolute Basophils (0.0-0.2) 10^3/uL 0.01 VBG Lactate (0.6-1.4) mmol/L 1.1 Sodium (136-145) mmol/L 139 Potassium (3.5-5.1) mmol/L 3.6 Chloride (98-107) mmol/L 103 Carbon Dioxide (21.0-32.0) mmol/L 26.2 Anion Gap (3-11) mmol/L 9.8 BUN (7-18) mg/dL 21 H Creatinine (0.70-1.30) mg/dL 1.2 Estimated GFR/1.73 m2 (mL/min/1.73m2) >= 60.00 Glucose (74-106) mg/dL 119 H Calcium (8.5-10.1) mg/dL 8.6 Total Bilirubin (0.2-1.0) mg/dL 0.4 AST (15-37) U/L 31 ALT (16-63) U/L 48 Alkaline Phosphatase (46-116) U/L 110 Troponin I (<0.06) ng/mL Total Protein (6.4-8.2) g/dL 7.4 Albumin (3.4-5.0) g/dL 3.7 Urine Color (Yellow) Urine Clarity (Clear) Urine pH (5-8) Ur Specific [place] (1.005-1.025) Urine Protein (Negative) mg/dL Urine Ketones (Negative) mg/dL Urine Blood (Negative) Urine Nitrite (Negative) Urine Bilirubin (Negative) Urine Urobilinogen (Up TO 0.2) EU/dL Ur Leukocyte Esterase (Negative) Urine RBC (0-2) HPF Urine WBC (0-5) HPF Ur Epithelial Cells (Negative) HPF Urine Crystals (Negative) HPF Urine Bacteria (Negative) HPF Urine Casts (Negative) LPF Urine Mucus (Negative) Ur Culture Indicated? Urine Glucose (Negative) mg/dL COVID-19 Source SARS-CoV-2 (PCR) (Negative) Influenza Type A (PCR) (Negative) Influenza Type B (PCR) (Negative) RSV (PCR) (Negative) Range/Units 12/06/20 12/06/20 12/06/20 14:00 14:05 14:15 WBC (4.4-10.8) 10^3/uL RBC (4.36-5.78) 10^6/uL Hgb (13.5-17.5) g/dL Hct (40.0-50.0) % MCV (80-95) fL MCH (27.0-33.0) pg MCHC (32.0-36.0) % RDW (11.8-14.1) % Plt Count (130-400) 10^3/uL MPV (8.0-11.0) fL Immature Gran % Neutrophils % Lymphocytes % Monocytes % Eosinophils % Basophils % Nucleated RBC % % Absolute Neutrophils (1.2-6.7) 10^3/uL Absolute Lymphocytes (1.2-3.4) 10^3/uL Absolute Monocytes (0.1-0.8) 10^3/uL Absolute Eosinophils (0.0-0.7) 10^3/uL Absolute Basophils (0.0-0.2) 10^3/uL VBG Lactate (0.6-1.4) mmol/L Sodium (136-145) mmol/L Potassium (3.5-5.1) mmol/L Chloride (98-107) mmol/L Carbon Dioxide (21.0-32.0) mmol/L Anion Gap (3-11) mmol/L BUN (7-18) mg/dL Creatinine (0.70-1.30) mg/dL Estimated GFR/1.73 m2 (mL/min/1.73m2) Glucose (74-106) mg/dL Calcium (8.5-10.1) mg/dL Total Bilirubin (0.2-1.0) mg/dL AST (15-37) U/L ALT (16-63) U/L Alkaline Phosphatase (46-116) U/L Troponin I (<0.06) ng/mL < 0.05 Total Protein (6.4-8.2) g/dL Albumin (3.4-5.0) g/dL Urine Color (Yellow) Yellow Urine Clarity (Clear) Clear Urine pH (5-8) 6.0 Ur Specific [place] (1.005-1.025) >= 1.030 H Urine Protein (Negative) mg/dL 30 H Urine Ketones (Negative) mg/dL Trace H Urine Blood (Negative) Negative Urine Nitrite (Negative) Negative Urine Bilirubin (Negative) Negative Urine Urobilinogen (Up TO 0.2) EU/dL 1.0 H Ur Leukocyte Esterase (Negative) Negative Urine RBC (0-2) HPF 0-2 Urine WBC (0-5) HPF 0-2 Ur Epithelial Cells (Negative) HPF Rare Urine Crystals (Negative) HPF Negative Urine Bacteria (Negative) HPF Negative Urine Casts (Negative) LPF Negative Urine Mucus (Negative) Negative Ur Culture Indicated? No Urine Glucose (Negative) mg/dL Negative COVID-19 Source Nasopharyx SARS-CoV-2 (PCR) (Negative) Negative Influenza Type A (PCR) (Negative) Negative Influenza Type B (PCR) (Negative) Negative RSV (PCR) (Negative) Negative ECG Data Attestation: I personally reviewed and interpreted this ECG (s) as follows: Interpretation: EKG shows sinus rhythm at 91, normal axis, nonspecific ST changes, no STEMI, nondiagnostic EKG HPI General Mode of arrival: ambulatory. Date/Time Provider Initiated Documentation: 12/06/20 13:56. Limitations to Documentation: no limitations. Information obtained by: patient, RN notes reviewed and old records reviewed. HPI Narrative: Alexis Sanchez is a 55 y/o man with h/o HTN presenting to the emergency department with cough, fevers. Pt reports that 6 days ago he developed generalized body aches, headache, chills, and cough. Pt has had persistent symptoms since onset, and has also had intermittent subjective fevers. Pt reports worst current pain is in his knees, though continues to have generalized body aches and headache. Headache is not the worst of his life, not maximal at onset, has been intermittent. Denies abdominal pain, chest pain, SOB, vomiting, diarrhea, numbness, weakness. He reports decreased appetite since onset. Pt reports that he does not wear a mask or take COVID precautions in general and is unsure if he has had COVID exposure. Pt reports that he lives with his who has not had symptoms. Related Data Home Medications Medication Instructions Recorded Confirmed Excedrin Migraine 1 - 2 ea PO PRN 07/11/13 12/06/20 amlodipine 5 mg tablet 5 mg PO DAILY #90 tab-cap 06/26/20 12/06/20 lisinopril 20 mg tablet 20 mg PO DAILY #30 tab 11/09/20 12/06/20 doxycycline hyclate 100 mg PO BID #19 tab 12/06/20 Previous Rx's Medication Instructions Recorded amlodipine 5 mg tablet 5 mg PO DAILY #90 tab-cap 06/26/20 lisinopril 20 mg tablet 20 mg PO DAILY #30 tab 11/09/20 doxycycline hyclate 100 mg PO BID #19 tab 12/06/20 Allergies Allergy/AdvReac Type Severity Reaction Status Date / Time shellfish derived Allergy Severe THROAT Unverified 12/06/20 13:59 CLOSES General Stated Complaint: Fever BENNY: 2 Review of Systems Narrative: Constitutional: reports fevers, chills Eyes: denies eye pain ENT: denies ear pain, dental pain, sore throat Cardiovascular: denies chest pain, edema Respiratory: denies SOB, reports cough GI: denies abdominal pain, vomiting, diarrhea : denies flank pain MSK: denies back pain, neck pain, reports generalized arthralgias, myalgias Skin: denies rash Neuro: denies numbness, weakness, reports headache PFSH Medical History (Updated 12/06/20 @ 15:51 by Lisa Washington MD) Hypertension Surgical History Arthroplasty of knee (~2005) meniscus repair Arthroscopy left wrist [employer] release Social History Smoking/Tobacco Use Status: Current every day Tobacco Type: smokeless tobacco Smoking risk assessment performed?: Yes Alcohol Intake: never Drug use: Never Substance use type: does not use Do you feel safe at home: Yes Do you feel safe in your relationship?: Yes Exam Narrative Exam Narrative: Constitutional: well and [id number], pleasant, conversing normally HENT: head atraumatic/normocephalic/normal inspection, mucous membranes moist Eyes: conjunctiva normal, sclera normal, pupils 3mm b/l Neck: no stridor, normal ROM, trachea midline Resp: normal work of breathing, speaking in full sentences Cardio: normal rate, normal rhythm Skin: warm, dry, normal color, no rash Neuro: alert, not altered, grossly non-focal, normal tone Ext: no edema, moving all extremities equally Psych: normal mood, normal affect, normal behavior Course Vital Signs Vital signs: Vital Signs Temperature 37.7 C H 12/06/20 13:55 Pulse 123 H 12/06/20 13:55 Respiratory Rate 22 12/06/20 13:55 Blood Pressure 142/88 H 12/06/20 13:55 Pulse Oximetry 95 12/06/20 13:55 Temperature 37.7 C H 12/06/20 13:55 Temperature Source Oral 12/06/20 13:55 Pulse 123 H 12/06/20 13:55 Respiratory Rate 22 12/06/20 13:55 Respiratory Effort 12/06/20 14:00 Blood Pressure 142/88 H 12/06/20 13:55 Blood Pressure Position Sitting 12/06/20 13:55 Pulse Oximetry 95 12/06/20 13:55 Oxygen Delivery Method Room Air 12/06/20 13:55 Oxygen Flow Rate 0 12/06/20 13:55 Pain Level 5 12/06/20 13:55 Lab/Test Results Lab/Test Results: 12/06/20 14:04 Blood Blood Culture - Pending 12/06/20 14:04 Blood Blood Culture - Pending Laboratory Tests Range/Units 12/06/20 12/06/20 12/06/20 14:00 14:00 14:00 WBC (4.4-10.8) 10^3/uL 3.67 L RBC (4.36-5.78) 10^6/uL 4.63 Hgb (13.5-17.5) g/dL 13.4 L Hct (40.0-50.0) % 39.6 L MCV (80-95) fL 85.5 MCH (27.0-33.0) pg 28.9 MCHC (32.0-36.0) % 33.8 RDW (11.8-14.1) % 13.5 Plt Count (130-400) 10^3/uL 140 MPV (8.0-11.0) fL 10.6 Immature Gran % 0.3 Neutrophils % 68.3 Lymphocytes % 19.9 Monocytes % 11.2 Eosinophils % 0.0 Basophils % 0.3 Nucleated RBC % % 0 Absolute Neutrophils (1.2-6.7) 10^3/uL 2.51 Absolute Lymphocytes (1.2-3.4) 10^3/uL 0.73 L Absolute Monocytes (0.1-0.8) 10^3/uL 0.41 Absolute Eosinophils (0.0-0.7) 10^3/uL 0.00 Absolute Basophils (0.0-0.2) 10^3/uL 0.01 VBG Lactate (0.6-1.4) mmol/L 1.1 Sodium (136-145) mmol/L 139 Potassium (3.5-5.1) mmol/L 3.6 Chloride (98-107) mmol/L 103 Carbon Dioxide (21.0-32.0) mmol/L 26.2 Anion Gap (3-11) mmol/L 9.8 BUN (7-18) mg/dL 21 H Creatinine (0.70-1.30) mg/dL 1.2 Estimated GFR/1.73 m2 (mL/min/1.73m2) >= 60.00 Glucose (74-106) mg/dL 119 H Calcium (8.5-10.1) mg/dL 8.6 Total Bilirubin (0.2-1.0) mg/dL 0.4 AST (15-37) U/L 31 ALT (16-63) U/L 48 Alkaline Phosphatase (46-116) U/L 110 Total Protein (6.4-8.2) g/dL 7.4 Albumin (3.4-5.0) g/dL 3.7 COVID-19 Source Range/Units 12/06/20 14:05 WBC (4.4-10.8) 10^3/uL RBC (4.36-5.78) 10^6/uL Hgb (13.5-17.5) g/dL Hct (40.0-50.0) % MCV (80-95) fL MCH (27.0-33.0) pg MCHC (32.0-36.0) % RDW (11.8-14.1) % Plt Count (130-400) 10^3/uL MPV (8.0-11.0) fL Immature Gran % Neutrophils % Lymphocytes % Monocytes % Eosinophils % Basophils % Nucleated RBC % % Absolute Neutrophils (1.2-6.7) 10^3/uL Absolute Lymphocytes (1.2-3.4) 10^3/uL Absolute Monocytes (0.1-0.8) 10^3/uL Absolute Eosinophils (0.0-0.7) 10^3/uL Absolute Basophils (0.0-0.2) 10^3/uL VBG Lactate (0.6-1.4) mmol/L Sodium (136-145) mmol/L Potassium (3.5-5.1) mmol/L Chloride (98-107) mmol/L Carbon Dioxide (21.0-32.0) mmol/L Anion Gap (3-11) mmol/L BUN (7-18) mg/dL Creatinine (0.70-1.30) mg/dL Estimated GFR/1.73 m2 (mL/min/1.73m2) Glucose (74-106) mg/dL Calcium (8.5-10.1) mg/dL Total Bilirubin (0.2-1.0) mg/dL AST (15-37) U/L ALT (16-63) U/L Alkaline Phosphatase (46-116) U/L Total Protein (6.4-8.2) g/dL Albumin (3.4-5.0) g/dL COVID-19 Source Nasopharyx
[2020-12-06 14:40] LABS: Bacteria Negative HPF (Negative); C & S Indicated? No; Casts Negative LPF (Negative); Crystals Negative HPF (Negative); Epithelial Cells Rare HPF (Negative); Mucus Negative (Negative); RBC 0-2 HPF (0-2); WBC 0-2 HPF (0-5)
[2020-12-06 14:45] LABS: Troponin I < 0.05 ng/mL (<0.06)
[2020-12-06 14:56] LABS: COVID-19 PCR Negative (Negative); Influenza A PCR Negative (Negative); Influenza B PCR Negative (Negative); RSV PCR Negative (Negative)
[2020-12-06] MEDS: Doxycycline Hyclate 100 MG CAP PO (16:05)
== END 2020-12-06 16:15 | disposition home or self-care (01) ==
PROVIDERS: Emergency Provider Student in an Organized Health Care Education/Training Program; PCP Emergency Medicine
DX: R05 Cough (principal); M79.10 Myalgia, unspecified site; R50.9 Fever, unspecified; J98.11 Atelectasis; Z03.818 Encounter for observation for suspected exposure to other biological agents ruled out
CPT/HCPCS: 36410; 36415; 80053; 87040; 87637; 93005; 96360; 99285; 71045; 81003; 81015; 83605; 84484; 85025; 93010; 99284

== ENCOUNTER 2021-02-18 10:59 | Emergency (ER) | payer OTHER, SELFPAY ==
--- NOTE | 2021-02-18 11:00 | DI.RAD_ITS ---
Exam(s) XR HAND RT COMPLETE EXAM: XR HAND RT COMPLETE CLINICAL HISTORY: crush injury 5th digit. TECHNIQUE: 2D digital imaging was performed. COMPARISON: No exams were available for comparison FINDINGS: BONES: There is a comminuted fracture of the ulnar aspect of the terminal tuft of the right 5th finge r. There is associated soft tissue swelling. There are 2 tiny densities at the ulnar aspect of the DIP joint of the right little finger which may represent foreign bodies versus small avulsed fracture fragments. No other fracture or dislocation is seen. There are moderate degenerative changes of th e hand and wrist particularly at the 1st CMC joint. No bony destructive lesion is seen. JOINTS: No dislocation present. SOFT TISSUE: Normal. IMPRESSION: 1. Fracture of the terminal tuft of the 5th finger. 2. Two small densities adjacent to the DIP joint of the 5th finger which may represent a small avulse d fracture fragments versus foreign bodies. DATA REPOSITORY: RADIATION DOSE DELIVERED:
[2021-02-18 11:02] VITALS: BP 127/87; PULSE 85; RESP 16; TEMP 36.8; O2SAT 98
--- NOTE | 2021-02-18 11:11 | ED.GENADUL_ITS ---
Discharge Plan Disposition Patient Disposition: HOME Condition: Stable Discharge Details Clinical Impression: Open finger fracture Primary Care Provider: Carlos Maki ED Provider: Gil Fierro Home Meds and New Rx's Prescriptions: New cephalexin 500 mg capsule 500 mg PO BID 3 Days Qty: 6 RF: 0 Continued lisinopril 20 mg tablet 20 mg PO DAILY Qty: 90 RF: 3 Excedrin Migraine 1 EACH tablet 1 - 2 ea PO PRN RF: 0 amlodipine 5 mg tablet 5 mg PO DAILY Qty: 90 RF: 4 Discharge Instructions Instructions: Finger Fracture (ED) Additional Instructions: Keflex as directed. Rest, elevate, cool compresses every 2 hours for 20 minutes. [id number] Tylenol and/or Motrin as directed for discomfort. Sutures removed in approximately 10 days. Please watch for new or worsening symptoms and return to the ER for any concerns. I have placed you on the orthopedic list, please contact their office later today or tomorrow for prompt outpatient reevaluation. Discharge Data Discharge Date/Time-TO BE ENTERED AT DEPARTURE: 02/18/21 12:48 Medical Decision Making 55-year-old gentleman with a crush injury to his nondominant pinky. Will perform digital block, obtain x-ray, cleaned thoroughly, and will need to repair. Will update tetanus status. Based upon x-ray will dictate whether or not we initiate antibiotic therapy. Patient tolerated the digital block well. X-ray obtained and read by radiology as fracture of the terminal tuft of the fifth finger. 2 small densities adjacent to the DIP joint on the fifth finger which may represent a small avulsed fracture fragment versus foreign bodies. Clinically I was unable to visualize any foreign bodies during my evaluation or repair of the laceration. Laceration repaired without difficulty. Patient tolerated well. Nonstick antibiotic dressing and an AlumaFoam splint applied. Patient placed on the orthopedic list. Will provide a 3-day prescription of Keflex given his open tuft fracture. Strongly recommend he contact orthopedics for outpatient reevaluation, otherwise return to the ER for new or worsening symptoms. Patient comfortable with plan and has no additional questions or concerns. Medical Records Medical records reviewed: Yes I reviewed the patient's medical records. HPI General Mode of arrival: ambulatory . Date/Time Provider Initiated Documentation: 02/18/21 11:11 . Limitations to Documentation: no limitations . Information obtained by: patient . HPI Narrative: This is a 55-year-old gentleman, [id number], past medical history of hypertension. He presents to the ER complaining of a right fifth finger injury that he sustained at work just prior to arrival. He states that a cast iron piece that weighs at least 20-25 pounds fell onto his finger pinching his finger between the cast iron and cement. He denies any other injury. He reports the pain is moderate t o severe, worse with movement. Denies any numbness, tingling, weakness. Reports his last tetanus update was 2014. Patient without any other questions or concerns. Related Data Home Medications Medication Instructions Recorded Confirmed Excedrin Migraine 1 - 2 ea PO PRN 07/11/13 02/18/21 amlodipine 5 mg tablet 5 mg PO DAILY #90 tab-cap 06/26/20 02/18/21 lisinopril 20 mg tablet 20 mg PO DAILY #90 tab 12/18/20 02/18/21 cephalexin 500 mg PO BID 3 Days #6 cap 02/18/21 Previous Rx's Medication Instructions Recorded amlodipine 5 mg tablet 5 mg PO DAILY #90 tab-cap 06/26/20 lisinopril 20 mg tablet 20 mg PO DAILY #90 tab 12/18/20 cephalexin 500 mg PO BID 3 Days #6 cap 02/18/21 Allergies Allergy/AdvReac Type Severity Reaction Status Date / Time shellfish derived Allergy Severe THROAT Unverified 02/18/21 11:06 CLOSES General Stated Complaint: Orthopedic BENNY: 3 Review of Systems Constitutional Constitutional: Denies fever(s) and Denies weakness Musculoskeletal Musculoskeletal: Denies arthralgias, Denies numbness, Reports stiffness and Denies tingling Integumentary/Breasts Skin/Breast: Denies rash Neurologic Neurologic: Denies numbness, Denies tingling and Denies weakness [facility] Medical History Hypertension Surgical History Arthroplasty of knee (~2005) meniscus repair Arthroscopy left wrist [employer] release Social History Smoking/Tobacco Use Status: Current every day Tobacco Type: smokeless tobacco Smoking risk assessment performed?: Yes Alcohol Intake: never Drug use: Never Substance use type: does not use Do you feel safe at home: Yes Do you feel safe in your relationship?: Yes Exam Const General: cooperative, healthy appearing, comfortable and no acute distress Orientation: alert and awake [facility] Head: normal to inspection, normocephalic and atraumatic Eyes General: appearance normal, both eyes and all related structures Conjunctivae: conjunctivae normal Neck Neck: normal visual inspection, trachea midline and supple Resp Effort & Inspection: normal respiratory effort and able to speak in complete sentences Cardio Rate: regular rate Rhythm: regular rhythm Skin General skin exam: no rashes or lesions noted Neuro General: patient alert, patient awake, moves all extremities and no focal motor deficits Cognition: normal cognition Speech: speech normal Gait: normal gait Motor: muscle tone normal throughout Sensory Exam: no sensory deficits noted and normal double simultaneous stimulation Extrem General: full ROM and capillary refill normal Hand/finger images: 1. Superficial skin tear, 1 cm in length. 2. 1 cm superficial well approximated laceration. 3. 2.5 cm laceration, minimal bleeding. Both hands are covered in dirt-oil. Neuro, vascular, tendon intact. Full range of motion. No signs of foreign body. Psych Appearance: grossly normal Mental Status: mental status grossly normal Course Vital Signs Vital signs: Vital Signs Temperature 36.8 C 02/18/21 11:02 Pulse 85 02/18/21 11:02 Respiratory Rate 16 02/18/21 11:02 Blood Pressure 127/87 02/18/21 11:02 Pulse Oximetry 98 02/18/21 11:02 Temperature 36.8 C 02/18/21 11:02 Temperature Source Temporal Artery Scan 02/18/21 11:02 Pulse 85 02/18/21 11:02 Respiratory Rate 16 02/18/21 11:02 Respiratory Effort Non-Labored 02/18/21 11:06 Blood Pressure 127/87 02/18/21 11:02 Blood Pressure Position Sitting 02/18/21 11:02 Pulse Oximetry 98 02/18/21 11:02 Oxygen Delivery Method Room Air 02/18/21 11:02 Oxygen Flow Rate 0 02/18/21 11:02 Pain Level 7 02/18/21 11:02 Procedures Laceration Laceration 1: Site: hand Side (If applicable): right Size (cm): 2.5 Description: linear Depth: simple, single layer Local Anesthetic: Lidocaine 2%, Bupivicaine 0.5% and other anesthetic ([id number] mixture, digital block) Amount of anesthesia used (mL): 6 Pre-repair: wound explored, irrigated extensively and deep structures intact Skin layer closed with: nylon Size (cm): 4-0 Number of sutures: 6 Technique: simple, interrupted
[2021-02-18] MEDS: Bupivacaine 0.5% Pres-Free 30 ML VIAL (11:53)
== END 2021-02-18 12:48 | disposition home or self-care (01) ==
PROVIDERS: Emergency Provider Physician Assistant; PCP Emergency Medicine
DX: S67.196A Crushing injury of right little finger, initial encounter (principal); S62.636B Displaced fracture of distal phalanx of right little finger, initial encounter for open fracture; W23.0XXA Caught, crushed, jammed, or pinched between moving objects, initial encounter; Y99.0 Civilian activity done for income or pay
CPT/HCPCS: 12001; 29130; 90471; 99283; 73130; 99284

== ENCOUNTER 2021-02-22 21:11 | Inpatient (IN) | payer SELFPAY ==
[2021-02-22] VITALS (25 sets, daily range): BP systolic 126–147; BP diastolic 88–99; PULSE 60–122; RESP 14–28; TEMP 36.6; O2SAT 14–99
--- NOTE | 2021-02-22 21:45 | DI.CT_ITS ---
Exam(s) CT ABDOMEN PELVIS W EXAM: CT ABDOMEN PELVIS W CLINICAL HISTORY: abdominal pain ruq TECHNIQUE: Imaging Protocol: Axial computed tomography images with coronal and sagittal reformatted images were created and reviewed CONTRAST MATERIAL: Intravenous: Omnipaque 350 Contrast volume:100 mL Oral: No COMPARISON: No exams were available for comparison FINDINGS: ABDOMEN: Lung Bases: Dependent atelectasis. Liver: Normal density. No measurable mass. There are tiny hypodensities in the left lobe of the liver . They are too small for further characterization, but likely reflect small cysts. Portal, Superior Mesenteric, and Splenic Veins: Unremarkable. Gallbladder and Biliary Tract: No radiodense calculus or dilation. Pancreas: Normal density, no abnormal calcifications or inflammatory process. Spleen: Normal. Adrenals: No masses seen. Kidneys: Normal size, contour and axis. There are 2 nonobstructing stones in the left kidney. The la rgest measures 5 mm. No hydronephrosis. Hypodensities are seen in the kidneys bilaterally. They ar e too small for further characterization, but likely reflect small cysts. There are 2 simple cysts s een in the left kidney. No further follow-up is recommended. Abdominal Aorta: Abdominal portion non-dilated. Mild atherosclerosis. Bowel: There are dilated loops of proximal and mid small bowel. The distal small bowel is of normal caliber. There is mild bowel wall thickening of several loops of the small bowel in the right abdome n. This may represent enteritis. No evidence of appendicitis. There is a small hiatal hernia. The re is diverticulosis seen in the sigmoid colon, but no evidence of acute diverticulitis. Peritoneal Cavity: There is a small amount of perihepatic and perisplenic ascites. There is a small amount of ascites in the pelvis. No free air.There is mild infiltration in the mesentery. Lymph Nodes: Within normal limits. Bones: Within normal limits for the patient's age. Soft Tissues: There is a small fat containing umbilical hernia. PELVIS: Bladder: Symmetric distention, no gross wall thickening. Reproductive Organs: Unremarkable as visualized. Lymph Nodes: Within normal limits. Bones: Within normal limits for the patient's age. IMPRESSION: 1. Dilated loops of proximal and mid small bowel with normal distal small bowel caliber. The finding s are suggestive of small bowel obstruction. 2. Mild bowel wall thickening of small bowel loops in the right abdomen which may represent an infect ious or inflammatory enteritis. 3. Small amount of abdominal pelvic ascites. 4. Left nephrolithiasis. No hydronephrosis. 5. Colonic diverticulosis, but no evidence of acute diverticulitis. RADIATION DOSE DELIVERED: 1,090.28mGy.cm Total DLP DATA REPOSITORY: All CT scans at this facility are submitted to the National Radiology Data Registry (NRDR) Dose Index Registry (DIR) with the [employer] (A[employer]). RADIATION OPTIMIZATION: All CT scans at this facility use at least one of these dose optimization te chniques: automated exposure control; mA and/or kV adjustment per patient size (includes targeted exa ms where dose is matched to clinical indication); or iterative reconstruction.
[2021-02-22 22:03] LABS: Abs Immature Grans 0.04 10^3/uL (0.0-0.06); Absolute Basophil Count 0.04 10^3/uL (0.0-0.2); Absolute Eosinophil Count 0.12 10^3/uL (0.0-0.7); Absolute Lymphocyte Count 1.38 10^3/uL (1.2-3.4); Absolute Monocyte Count 0.79 10^3/uL (0.1-0.8); Basophils % 0.3; HCT 43.1 % (40.0-50.0); HGB 14.4 g/dL (13.5-17.5); Immature Grans % 0.3; Lymphocytes % 11.4; MCH 29.4 pg (27.0-33.0); MCHC 33.4 % (32.0-36.0); MCV 88.1 fL (80-95); MPV 10.8 fL (8.0-11.0); Monocytes % 6.5; Neutrophils % 80.5; Nucleated RBC 0 %; Platelet Count 298 10^3/uL (130-400); RBC 4.89 10^6/uL (4.36-5.78); RDW 13.2 % (11.8-14.1); RDW-SD 42.6 fL; WBC 12.09 10^3/uL (4.4-10.8)
[2021-02-22] MEDS: Lactated Ringers 500 ML IV (22:04)
[2021-02-22 22:09] LABS: Absolute Neutrophil Count 9.73 10^3/uL (1.2-6.7)
[2021-02-22] MEDS: Omnipaque 350 MG/ML 100 ML BTL IJ (22:10)
--- NOTE | 2021-02-22 22:10 | ED.GENADUL_ITS ---
Discharge Plan Disposition Patient Disposition: [facility] INPATIENT Condition: Serious Discharge Details Chief Complaint: Abd Prob Clinical Impression: Small bowel obstruction Primary Care Provider: Carlos Maki ED Provider: Viet Washington Home Meds and New Rx's Prescriptions: No Action lisinopril 20 mg tablet 20 mg PO DAILY Qty: 90 RF: 3 Excedrin Migraine 1 EACH tablet 1 - 2 ea PO PRN RF: 0 amlodipine 5 mg tablet 5 mg PO DAILY Qty: 90 RF: 4 Medical Decision Making 2014??55-year-old male here with right upper quadrant abdominal pain today. Consider acute surgical pathology including acute cholecystitis, consider biliary colic. Bedside [id number] ultrasound of the right upper quadrant was performed by me: I was able to visualize the gallbladder with a limited view to the ribs, no obvious stone or pericholecystic fluid. Unfortunately official ultrasound cannot be obtained at this time. I will obtain CT of the abdomen pelvis to assess for acute surgical pathology. Will check labs. I offered pain medication patient: 2329 --CT of the abdomen pelvis was interpreted by radiology: IMPRESSION: 1. Minimal ascites. 2. Dilated small bowel loops suggesting small bowel obstruction with minimal focal mural thickening of infectious/inflammatory enteritis not entirely excluded. Patient vomiting. Zofran 4 mg IV administered. Patient also complaining of pain and now agreeable to analgesic. Will give Dilaudid 1 mg IV. 2334 --I called and spoke with Dr. Dang, on-call surgeon, he agrees with NG tube placement and request bridging orders be placed to floor with normal saline running at 150/hr. HPI General Mode of arrival: ambulatory . Date/Time Provider Initiated Documentation: 02/22/21 21:34 . Limitations to Documentation: no limitations . Information obtained by: patient . HPI Narrative: 55-year-old male with history of hypertension presents with chief complaint of abdominal pain. Patient notes pain in his right upper abdomen started this morning and has persisted. Pain is severe at times, sharp, waxes and wanes. Pain worse when he exhales. No associated nausea or vomiting. Last bowel movement was this morning was normal. Patient denies alcohol use. Related Data Home Medications Medication Instructions Recorded Confirmed Excedrin Migraine 1 - 2 ea PO PRN 07/11/13 02/22/21 amlodipine 5 mg tablet 5 mg PO DAILY #90 tab-cap 06/26/20 02/22/21 lisinopril 20 mg tablet 20 mg PO DAILY #90 tab 12/18/20 02/22/21 Previous Rx's Medication Instructions Recorded amlodipine 5 mg tablet 5 mg PO DAILY #90 tab-cap 06/26/20 lisinopril 20 mg tablet 20 mg PO DAILY #90 tab 12/18/20 Allergies Allergy/AdvReac Type Severity Reaction Status Date / Time shellfish derived Allergy Severe THROAT Unverified 02/22/21 21:22 CLOSES General Stated Complaint: Abd Prob BENNY: 3 Review of Systems All systems reviewed & are unremarkable except as noted in HPI and below Constitutional Constitutional: Denies fever(s) Gastrointestinal Gastrointestinal: Reports as per HPI, Denies nausea and Denies vomiting PFSH Medical History (Updated 02/22/21 @ 23:39 by Viet Washington MD) Hypertension Surgical History Arthroplasty of knee (~2005) meniscus repair Arthroscopy left wrist [employer] release Social History Smoking/Tobacco Use Status: Current every day Tobacco Type: smokeless tobacco Smoking risk assessment performed?: Yes Alcohol Intake: never Drug use: Never Substance use type: does not use Do you feel safe at home: Yes Do you feel safe in your relationship?: Yes Exam Const General: cooperative and no acute distress HENMT Mouth: moist mucous membranes Eyes Conjunctivae: normal conjunctivae Sclera: normal sclerae Neck Neck: trachea midline and supple Resp Auscultation: clear to auscultation bilaterally, no rales, no rhonchi and no wheezes Cardio Rate: regular rate and not tachycardic Rhythm: regular rhythm GI Palpation: soft, not firm, no guarding, no masses, not rigid and tender in the RUQ; with no rebound tenderness Rectal Exam: No mass Skin General skin exam: no rashes or lesions noted Neuro General: patient alert, patient awake, patient oriented x3 and tone normal Extrem General: no edema Psych Appearance: grossly normal Mental Status: mental status grossly normal Course Vital Signs Vital signs: Vital Signs Temperature 36.6 C 02/22/21 21:19 Pulse 65 02/22/21 21:19 Respiratory Rate 18 02/22/21 21:19 Blood Pressure 134/99 H 02/22/21 21:19 Pulse Oximetry 14 L 02/22/21 21:19 Temperature 36.6 C 02/22/21 21:19 Temperature Source Skin 02/22/21 21:19 Pulse 65 02/22/21 21:19 Respiratory Rate 18 02/22/21 21:19 Respiratory Effort Non-Labored 02/22/21 21:22 Blood Pressure 134/99 H 02/22/21 21:19 Pulse Oximetry 14 L 02/22/21 21:19 Pain Level 7 02/22/21 21:22 Lab/Test Results Lab/Test Results: Laboratory Tests Range/Units 02/22/21 21:30 WBC (4.4-10.8) 10^3/uL 12.09 H RBC (4.36-5.78) 10^6/uL 4.89 Hgb (13.5-17.5) g/dL 14.4 Hct (40.0-50.0) % 43.1 MCV (80-95) fL 88.1 MCH (27.0-33.0) pg 29.4 MCHC (32.0-36.0) % 33.4 RDW (11.8-14.1) % 13.2 Plt Count (130-400) 10^3/uL 298 MPV (8.0-11.0) fL 10.8 Immature Gran % 0.3 Neutrophils % 80.5 Lymphocytes % 11.4 Monocytes % 6.5 Eosinophils % 1.0 Basophils % 0.3 Nucleated RBC % % 0 Absolute Neutrophils (1.2-6.7) 10^3/uL 9.73 H Absolute Lymphocytes (1.2-3.4) 10^3/uL 1.38 Absolute Monocytes (0.1-0.8) 10^3/uL 0.79 Absolute Eosinophils (0.0-0.7) 10^3/uL 0.12 Absolute Basophils (0.0-0.2) 10^3/uL 0.04
[2021-02-22] MEDS: Normal Saline - Diluent 50 ML VIAL IV (22:11)
[2021-02-22 22:14] LABS: ALT 36 U/L (16-63); AST 21 U/L (15-37); Albumin 3.9 g/dL (3.4-5.0); Alkaline Phosphatase 111 U/L (46-116); Anion Gap 7.6 mmol/L (3-11); BUN 15 mg/dL (7-18); Bilirubin, Total 0.7 mg/dL (0.2-1.0); CO2 29.4 mmol/L (21.0-32.0); CREATININE 1.1 mg/dL (0.70-1.30); Calcium 9.4 mg/dL (8.5-10.1); Chloride 103 mmol/L (98-107); Glucose 132 mg/dL (74-106); Lipase 65 U/L (73-393); Potassium 4.2 mmol/L (3.5-5.1); Sodium 140 mmol/L (136-145); Total Protein 7.8 g/dL (6.4-8.2)
--- NOTE | 2021-02-22 23:02 | DI.VRAD_ITS ---
PROCEDURE INFORMATION: Exam: CT Abdomen And Pelvis With Contrast Exam date and time: 02/22/2021 9:55 PM Age: 55 years old Clinical indication: Abdominal pain; Localized; Right upper quadrant (ruq) TECHNIQUE: Imaging protocol: Computed tomography of the abdomen and pelvis with contrast. Radiation optimization: All CT scans at this facility use at least one of these dose optimization techniques: automated exposure control; mA and/or kV adjustment per patient size (includes targeted exams where dose is matched to clinical indication); or iterative reconstruction. Contrast material: OMNIPAQUE 350; Contrast volume: 100 ml; Contrast route: INTRAVENOUS (IV); COMPARISON: No relevant prior studies available. FINDINGS: Liver: Normal. No mass. Gallbladder and bile ducts: Normal. No calcified stones. No ductal dilation. Pancreas: Normal. No ductal dilation. Spleen: Normal. No splenomegaly. Adrenal glands: Normal. No mass. Kidneys and ureters: Normal. No hydronephrosis. Stomach and bowel: Dilated small bowel loops suggesting small bowel obstruction with minimal focal mural thickening of infectious/inflammatory enteritis not entirely excluded. Colonic diverticula. Appendix: No evidence of appendicitis. Intraperitoneal space: Minimal ascites. Vasculature: Unremarkable. No abdominal aortic aneurysm. Lymph nodes: Unremarkable. No enlarged lymph nodes. Urinary bladder: Unremarkable as visualized. Reproductive: Unremarkable as visualized. Bones/joints: Unremarkable. No acute fracture. Soft tissues: Tiny fat containing umbilical hernia. IMPRESSION: 1. Minimal ascites. 2. Dilated small bowel loops suggesting small bowel obstruction with minimal focal mural thickening of infectious/inflammatory enteritis not entirely excluded. Dictated and Authenticated by: Darek Bailey MD. Ordering:ANIBAL Llanos MD
[2021-02-22 23:27] LABS: Bilirubin Negative (Negative); Blood Negative (Negative); Clarity Clear (Clear); Glucose Negative (Negative); Ketones Negative (Negative); Leukocyte Esterase Negative (Negative); Nitrite Negative (Negative); Specific Gravity 1.015 (1.005-1.025); pH 7.5 (5-8)
[2021-02-22] MEDS: Ondansetron 4 MG/2 ML VIAL IVP (23:30)
[2021-02-22] MEDS: HYDROmorphone 2 MG/ML VIAL 1 MG IVP (23:39)
[2021-02-23] VITALS (9 sets, daily range): BP systolic 131–151; BP diastolic 74–96; PULSE 50–87; RESP 12–19; TEMP 35.9–37.2; O2SAT 92–97
[2021-02-23] MEDS: Lidocaine 2% Viscous 15 ML CUP (00:10)
[2021-02-23 00:17] LABS: Source Nasal/Nares
--- NOTE | 2021-02-23 00:24 | DI.RAD_ITS ---
Exam(s) XR PORTABLE CHEST AP POST LINE EXAM: XR PORTABLE CHEST AP POST LINE CLINICAL HISTORY: NG tube TECHNIQUE: 2D digital imaging was performed. COMPARISON: No exams were available for comparison FINDINGS: Poor inspiration. MEDIASTINUM: Normal. HEART: Normal. PULMONARY VASCULATURE: Normal. LUNGS: Clear. PLEURAL SPACE: No pleural effusion or pneumothorax. BONE:Within normal limits for the patient's age. OTHER FINDINGS:The tip of the nasogastric tube is seen within the stomach. IMPRESSION: No acute pulmonary findings. DATA REPOSITORY: RADIATION DOSE DELIVERED:
--- NOTE | 2021-02-23 00:28 | DI.VRAD_ITS ---
PROCEDURE INFORMATION: Exam: XR Chest Exam date and time: 02/23/2021 12:16 AM Age: 55 years old Clinical indication: Device placement; Ng tube TECHNIQUE: Imaging protocol: XR of the chest. Views: 1 view. COMPARISON: CR XR PORTABLE CHEST AP 12/06/2020 3:08 PM FINDINGS: Tubes, catheters and devices: NG tube tip overlies stomach. Lungs: Unremarkable. No consolidation. Pleural spaces: Unremarkable. No pleural effusion. No pneumothorax. Heart/Mediastinum: Unremarkable. No cardiomegaly. Bones/joints: Unremarkable. IMPRESSION: No acute finding. Dictated and Authenticated by: Darek Bailey MD. Ordering:ANIBAL Llanos MD
[2021-02-23] MEDS: Normal Saline 1,000 ML 150 ML IV ×4 (00:58→19:36)
--- NOTE | 2021-02-23 10:10 | PDOC.CMIN ---
- If Service Date Differs Date of service: 02/23/21 Time of Service: 10:10 Care Management Initial Assess REASON FOR HOSPITALIZATION:: SBO PAST MEDICAL HISTORY/PAST SURGICAL HISTORY:: Hypertension. Arthroplasty of knee 2006 PREVIOUS FUNCTIONAL STATUS/SOCIAL/FAMILY SUPPORTS:: Alexis lives in [place], [place] with his Lisa. They have 3 adult children who live outside of the home. Alexis works for [employer] and is independent at baseline. CURRENT FUNCTIONAL STATUS:: Alexis was sitting up in bed when CM met with him. He was polite but not very talkative. Alexis stated that he has not been told what is going on and has many questions. The surgeon had not been in to see him at that time. CM was able to answer some, but not all, of his questions. He did indicate that he is feeling better than when he arrived, a lot better, but he still has the NG tube and is NPO. ADVANCE DIRECTIVES:: none on file Has patient been provided with info about the portal/API?: Yes Did the patient sign up for the portal?: No CODE STATUS:: Full Code INSURANCE COVERAGE / FINANCIAL ISSUES:: self pay. CM offered to assit Alexis with the Patient Financial Packet but he has declined PRIMARY CARE PHYSICIAN:: Carlos Maki POTENTIAL DISCHARGE NEEDS:: follow up with PCP , surgeon and plan of care PATIENT/FAMILY EDUCATION NEEDS:: review of discharge instructions, medications, diet, limitations, follow up plan [employer] Me [employer] TRANSPORTATION:: via private vehicle with PLAN:: Alexis will likely be discharged home with no new services. He will follow up with his PCP and discharge plan of care and transport with family. CM will continue to support Alexis and his discharge planning needs.
[2021-02-23 14:44] LABS: COVID-19 PCR Negative (Negative)
--- NOTE | 2021-02-24 00:25 | W.SURGCON ---
Date of service: 02/23/21 Assessment and Plan Assessment and plan (1) Small bowel obstruction: Status: Acute Assessment and plan: Likely viral etiology. Currently asymptomatic. Clear liquid diet. Will likely advance in AM No surgical intervention History of Present Illness History of Present Illness Chief Complaint: abdominal pain Narrative: 55 yo male presented with a one-day history of abdominal pain. He has never had this type of pain before. The pain began spontaneously and was crampy through is upper abdomen. Nothing makes the pain better or worse. Pain does not radiate. He did have emesis in the ER and CT was suspicious for SBO. He reports that he had a BM yesterday and is passing flatus. Consults Consult date: 02/23/21 Review of Systems All systems reviewed & are unremarkable except as noted in HPI and below PFSH Medical History (Updated 02/22/21 @ 23:39 by Viet Washington MD) Hypertension Surgical History Arthroplasty of knee (~2005) meniscus repair Arthroscopy left wrist [employer] release Social History Smoking/Tobacco Use Status: Current every day Tobacco Type: smokeless tobacco Smoking risk assessment performed?: Yes Alcohol Intake: never Drug use: Never Substance use type: does not use Do you feel safe at home: Yes Do you feel safe in your relationship?: Yes Exam Const General: cooperative and healthy appearing HENHI Head: normal to inspection Chest Chest: normal inspection of the chest Resp Effort & Inspection: normal respiratory effort Cardio Rate: regular rate Rhythm: regular rhythm GI Inspection: normal to inspection Skin General skin exam: no rashes or lesions noted Results Last Vital Signs Temp 99.0 F 02/23/21 23:15 Pulse 61 02/23/21 23:15 Resp 16 02/23/21 23:15 BP 131/81 02/23/21 23:15 Pulse Ox 95 02/23/21 23:15 Labs Result diagrams: 02/22/21 21:30 02/22/21 21:30 Labs: Laboratory Results - last 24 hr 02/23/21 00:15 SARS-CoV-2 (PCR) Negative
[2021-02-24] MEDS: Normal Saline 1,000 ML 150 ML IV (01:02)
[2021-02-24 03:30] VITALS: BP 130/74; PULSE 62; RESP 16; TEMP 37; O2SAT 95
[2021-02-24 08:22] VITALS: BP 149/82; PULSE 60; RESP 18; TEMP 37.2; O2SAT 95
[2021-02-24] MEDS: amLODIPine 5 MG TAB PO (09:01)
[2021-02-24] MEDS: Lisinopril 20 MG TAB PO (09:01)
[2021-02-24] MEDS: HYDROcodone 5/Acetaminophen 325 TAB PO (09:02)
[2021-02-24 11:30] VITALS: BP 130/78; PULSE 66; RESP 17; TEMP 37.3; O2SAT 96
[2021-02-24 15:18] VITALS: BP 139/90; PULSE 58; RESP 18; TEMP 36.9; O2SAT 96
--- NOTE | 2021-02-24 16:27 | PDOC.CMPRO ---
- If Service Date Differs Date of service: 02/24/21 Time of Service: 16:27 Care Management Progress Note S/O: Alexis was sitting up in bed when CM met with him. He was pleasant and appeared to be in good spirits. Alexis stated that he has no pain and has been tolerating his liquid diet well. His NG tube was removed last night around midnight. CM was present when the surgeon made rounds this afternoon. He informed Alexis that he could be discharged tonight if he tolerates a regular diet. KAREN provided Alexis with a copy of the [facility] Patient Assistance forms and also the [employer] brochure. He has no insurance but since he and his both work, is not eligible for Medicaid. KAREN also gave him 2 copies of the [facility] Adnvanced Directives forms. at his request. A:Alexis is a 55 year old man admitted on 02/22/21 with a SBO. P: Alexis will be discharged home with no new services. He will follow up with his PCP and plan of care and transport with his . CM will continue to support Alexis and assess for discharge planning needs.
--- NOTE | 2021-02-27 10:48 | W.PM.DS.N ---
Date of service: 02/24/21 DS: Diagnosis Discharge Diagnosis (1) Small bowel obstruction: Status: Acute Discharge Plan Disposition Patient Disposition: HOME Condition: Serious Discharge Details Reason For Visit: small bowel obstruction Admit Date/Time: 02/22/21 23:39 Admit Provider: Rj Dang Attending Provider: Rj Dang Primary Care Provider: Carlos Maki Hospital Course Hospital Course: Patient presented to the ER with 1 day history of abdominal pain nausea and vomiting. Work-up revealed a partial small bowel obstruction. This was successfully treated with an NG tube. Patient rapidly improved and was given a diet which he tolerated and he desired to go home. No surgical intervention was performed. He is to follow-up with his PCP in 1 to 2 weeks. He has no restrictions Home Meds and New Rx's Prescriptions: No Action lisinopril 20 mg tablet 20 mg PO DAILY Qty: 90 RF: 3 Excedrin Migraine 1 EACH tablet 1 - 2 ea PO PRN RF: 0 amlodipine 5 mg tablet 5 mg PO DAILY Qty: 90 RF: 4 Discharge Instructions Instructions: Bowel Obstruction (DC) Stand Alone Forms: Nursing Discharge Form Referrals: Rj Dang DO [ CONSULTING PHYSICIAN] - (please call office if any inceased pain or return to er) Activity:: Activity as Tolerated Equipment/Supplies:: No Equipment Needed Diet:: As Tolerated Discharge Orders Discharge Orders: Discharge Order (Routine); Ordered 02/24/21 Ordered By: Rj Dang Discharge Data Discharge Date/Time-TO BE ENTERED AT DEPARTURE: 02/24/21 17:25 DS: Summary Time Spent with Patient providing and/or coordinating discharge services: Less than 30 minutes Status at Discharge Functional status at discharge: independent ambulation Overall status at discharge: patient is back to baseline Mental Status: mental status grossly normal Speech and Movement: speech and movement normal Mood: congruent mood Affect: normal affect Exam Const General: cooperative, healthy appearing and comfortable Resp Effort & Inspection: normal respiratory effort and able to speak in complete sentences Auscultation: clear to auscultation bilaterally Cardio Jugular venous pressure: no JVD Rate: regular rate Rhythm: regular rhythm GI Inspection: normal to inspection Palpation: soft and nontender Neuro General: patient alert, patient awake and patient oriented x3 Psych Appearance: grossly normal Mental Status: mental status grossly normal Speech and Movement: speech and movement normal Mood: congruent mood Affect: normal affect DS: Data Vitals/I&O Vitals and I&O: Vital Signs Temperature 98.4 F 02/24/21 15:18 Temperature Source Tympanic 02/24/21 15:18 Pulse 58 L 02/24/21 15:18 Pulse Rhythm Regular 02/24/21 09:00 Pulse 87 02/23/21 00:01 Respiratory Rate 18 02/24/21 15:18 Respiratory Effort Non-Labored 02/24/21 09:00 Respiratory Depth Normal 02/24/21 09:00 Respiratory Pattern Normal 02/24/21 09:00 Blood Pressure 139/90 02/24/21 15:18 Blood Pressure Mean 105 02/23/21 00:01 Pulse Oximetry 96 02/24/21 15:18 Oxygen Delivery Method Room Air 02/24/21 15:18 Oxygen Flow Rate 0 02/24/21 15:18 Pain Level 0 02/24/21 15:18 Comment 02/23/21 11:59 PFSH Medical History (Updated 02/22/21 @ 23:39 by Viet Washington MD) Hypertension Surgical History Arthroplasty of knee (~2005) meniscus repair Arthroscopy left wrist [employer] release Social History Smoking/Tobacco Use Status: Current every day Tobacco Type: smokeless tobacco Smoking risk assessment performed?: Yes Alcohol Intake: never Drug use: Never Substance use type: does not use Do you feel safe at home: Yes Do you feel safe in your relationship?: Yes
== END 2021-02-24 17:25 | disposition home or self-care (01) | DRG 390 ==
LOC: ER 23:47 → MS 02-23 00:43
PROVIDERS: Admitting Provider Surgery; Emergency Provider Student in an Organized Health Care Education/Training Program; PCP Emergency Medicine; Visit Provider Surgery
DX: K56.609 Unspecified intestinal obstruction, unspecified as to partial versus complete obstruction (principal); Z72.0 Tobacco use; Z20.822 Contact with and (suspected) exposure to COVID-19
CPT/HCPCS: 71045; 80053; 83690; 87635; 96361; 96374; 96375; 99285; 74177; 81003; 85025; 99284; J2405; J3490

== ENCOUNTER 2021-05-07 16:52 | Outpatient (REF) | payer SELFPAY ==
[2021-05-07 19:27] LABS: Calculated LDL 112 mg/dL (<100); Cholesterol 202 mg/dL (<200); HDL Cholesterol 45 mg/dL (40-60); Triglyceride 226 mg/dL (<150)
[2021-05-08 17:58] LABS: PSA, Screening 0.9 ng/mL (0.0-3.5)
== END 2021-05-07 16:53 | disposition home or self-care (01) ==
LOC: LBN 16:52
PROVIDERS: PCP Emergency Medicine; Visit Provider Emergency Medicine
DX: E11.9 Type 2 diabetes mellitus without complications (principal); I10 Essential (primary) hypertension; E66.9 Obesity, unspecified; N40.0 Benign prostatic hyperplasia without lower urinary tract symptoms; Z12.5 Encounter for screening for malignant neoplasm of prostate
CPT/HCPCS: 80061; 84153; 83036

== ENCOUNTER 2022-01-22 00:59 | Outpatient (CLI) | payer SELFPAY ==
[2022-01-22 09:52] LABS: Source Nasal/Nares
[2022-01-22 14:17] LABS: COVID-19 PCR Negative (Negative)
== END 2022-01-22 01:00 | disposition home or self-care (01) ==
LOC: LBO 01:00
PROVIDERS: PCP Nurse Practitioner Family; Visit Provider Surgery
DX: Z20.822 Contact with and (suspected) exposure to COVID-19 (principal); Z01.818 Encounter for other preprocedural examination
CPT/HCPCS: 87635

== ENCOUNTER 2022-01-24 11:06 | Day surgery (SDC) | payer SELFPAY ==
--- NOTE | 2022-01-23 16:33 | W.COLOREPORT ---
Colonoscopy Report Date of procedure: 01/24/22 Pre-op diagnosis general: Colorectal cancer screening Post-op diagnosis procedure note: other (Diverticula and internal hemorrhoids) Surgeon: Radha Gibson Anesthesia Type: General:No Airway Complications: None Disposition: same day Prep: Miralax/Dulcolax Procedure Description: After informed consent was obtained the patient was taken to the procedure room and placed in a left decubitous position. Monitors were applied and a time out was done. The patients name, date of , procedure, allergies to medications and metal in their body was reviewed. The patient was then sedated. Once sedated and comfortable a rectal exam was done. External exam was normal. Internal exam revealed a normal sphincter tone and no palpable masses. The scope was then introduced and retrofelexed. Grade I internal hemorrhoids were identified. The scope was then advanced to the cecum w/out difficulty. The TI and appendiceal orifice were identified. The prep was BPS 3 in all segments for a total of 9. The scope was then slowly retracted over 11 minutes. He has severe diverticula confined to the sigmoid colon. There is no signs of active bleeding or infection. the scope was removed and the patient was woken up and taken back to Same day surgery in stable condition. Patient also required throughout jaw thrust maneuvers throughout the entirety of the anesthesia, otherwise he would stop breathing. He should have a sleep study done. The patient tolerated the procedure well and there were no immediate complications. Follow up: The patient should follow up in 5 years unless they develop changes in bowel habits or other new gastrointestinal complaints.
--- NOTE | 2022-01-23 16:35 | PDOC.DSDIS_ITS ---
Discharge Plan Disposition Patient Disposition: HOME Condition: Good Discharge Details Reason For Visit: Colon scope Attending Provider: Radha Gibson Primary Care Provider: Naldo Daily Home Meds and New Rx's Prescriptions: New pantoprazole [Protonix] 40 mg tablet,delayed release (DR/EC) 40 mg PO DAILY Qty: 90 12RF sucralfate [Carafate] 1 gram tablet 1 g PO QACHS Qty: 120 12RF Continued guaifenesin [Mucinex] 600 mg tablet extended release 12hr 1,200 mg PO BID PRN (Reason: congestion) lisinopril 20 mg tablet 20 mg PO HS amlodipine 5 mg tablet 5 mg PO HS Discontinued polyethylene glycol 3350 17 gram/dose powder 238 g PO ONCE Qty: 238 0RF Rx Instructions: take per colonoscopy instructions bisacodyl [Dulcolax (bisacodyl)] 5 mg tablet,delayed release (DR/EC) 5 mg PO ONCE Qty: 4 0RF Rx Instructions: take per colonoscopy instructions Excedrin Migraine 1 EACH tablet 1 - 2 ea PO PRN Discharge Instructions Instructions: Diet for Stomach Ulcers and Gastritis (GEN), GERD (Gastroesophageal Reflux Disease) (GEN) Additional Instructions: DSU Colonoscopy Post- Op Instructions Instructions for Everyone who is given Ane sthesia: For your safety, please do the following for the next twenty-four (24) hours: *Do Not operate a motor vehicle (car, truck, motorcycle, etc.) *Do Not drink alcoholic beverages or use any recreational drugs for the first 24 hours or while taking pain medications. The medications in your body may have a reaction that can be dangerous. *Do Not make any important decisions or sign any important papers. Findings: severe eophagitis/esophageal ulcer Follow up: 2 wks Continue with lifestyle modifications: no alcohol, tobacco products, Aspirin or NSAID's (ibuprofen, Motrin, Naprosyn, aleve, etc), soda pop/any carbonated beverages, caffeine (including tea & chocolate), and acidic foods, (tomatoes, citrus, onions, peppermints) spicy or fried/fatty foods. Do not lie down for 30 minutes after eating, and do not eat 2 hours prior to bedtime. Avoid wearing tight fitting clothing/ belts 1. No lifting over 20 pounds or strenuous activity for the first 24 hours after your procedure. After 24 hours there are no restrictions on your activity but you may feel fatigued for a few days. 2. After you arrive home you may have a light meal and return to your normal di et as you can tolerate it without feeling sick to your stomach. 3. You may have a bloated, gaseous feeling in your belly (abdomen) after a colonoscopy. Passing gas and belching will help. Walking or lying down on your left side with your knees flexed may relieve the discomfort. Call the office at [phone] (Office) or [phone] (Hospital) right away if you notice any of the following: a.Vomiting of blood or ?coffee ground stools?. b.Rectal bleeding 1Tbsp, blood clots or continuous bleeding. c.Severe belly (abdominal) pain. d.A hard distended belly (abdomen) and an inability to pass gas. 4. Please don?t expect to have a normal BM (bowel movement) for 2-3 days after your procedure. 5. If there are questions regarding the findings of your procedure, please contact your doctor 6. If you are unable to contact your doctor with a problem, contact the hospital at [phone]. 7. Continue all your regular medications unless directed otherwise. I understand the above instructions and have no questions. Signature of Patient or Adult Escort Name of Responsible Adult Escort Signature of Nurse Date/Time Stand Alone Forms: Olivia Guerrero (DSU) Activity:: See above Diet:: See above Discharge Orders Discharge Orders: Discharge Order (Routine); Ordered 01/23/22 Ordered By: Radha Gibson
--- NOTE | 2022-01-23 16:41 | W.PM.ENDDOP ---
Endoscopy Report DATE OF PROCEDURE: 01/23/22 PRE-OP DIAGNOSIS: Medication refractory GERD SURGEON: Radha Gibson ANESTHESIA TYPE: General:No Airway DISPOSITION: same day PREP: Miralax/Dulcolax PROCEDURE DESCRIPTION: After informed consent was obtained the patient was take to the procedure room and placed in a supine position. Monitors were applied and a time out was done. The patients name, date of , procedure type, allergies to medications and metal in their body was reviewed. A bite block was placed and the patient was sedated. Once sedated and comfortable the gastroscope was advanced through the oropharynx which was grossly normal into the esophagus. The proximal and mid-esophagus were nl. There are no esophageal varices, diverticula, or stricture apparent. The scope was advanced into the stomach and through the pylorus into the 3rd portion of the duodenum. The duodenum was noted to be mild duodenitis. Biopsies were done, all specimens are retrieved and no bleeding is noted. The scope was retracted back into the stomach and biopsies were done to rule out H. pylori. There are no gastric polyps. There are no gastric ulcers. There is moderate gastritis at the antrum. The scope was retroflexed. The cardia and fundus were noted to be normal. The diaphragmatic hiatus is at at 40 cm. The GE junction is at 35 cm. 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 He has a type I sliding hiatal hernia, 3-4cm in length. Scope was retracted back into the esophagus and biopsies were done of the GE junction to rule out Bacon's. The Z line was irregular. The scope was removed and the patient was woken up and taken back to [facility] in stable condition.
[2022-01-24 11:24] VITALS: BP 126/96; PULSE 65; RESP 16; TEMP 36.6; O2SAT 98
[2022-01-24] MEDS: Lactated Ringers 1,000 ML 80 ML IV (11:41)
--- NOTE | 2022-01-24 11:56 | W.ANESPRE ---
General Info Date of Service Date Performed: 01/24/22 Height: 6 ft Weight: 108.1 kg Body Mass Index (BMI): 32.3 Surgical Procedure: Operation Date: 01/24/22 11:50 Proposed Procedure Side Surgeon p Colonoscopy/Gastroscopy Radha Gibson, DO Meds Allergies and Home Medications Allergies Allergy/AdvReac Type Severity Reaction Status Date / Time shellfish derived Allergy Severe THROAT Verified 01/24/22 11:20 CLOSES Home Medication Medication Instructions Recorded guaifenesin 600 mg tablet, 1,200 mg PO BID PRN congestion 01/17/22 extended release 12 hr (Mucinex) amlodipine 5 mg tablet 5 mg PO HS 01/22/22 lisinopril 20 mg tablet 20 mg PO HS 01/22/22 Current Visit Medications: Current Medications Generic Name Dose Route Start Last Admin Trade Name Freq PRN Reason Stop Dose Admin Hyoscyamine Sulfate 0.125 mg 01/23/22 16:30 Hyoscyamine 0.125 Mg Sl/Oral/Chew SL DIRECTED PRN Ringer's Solution 1,000 mls @ 80 mls/hr 01/24/22 06:00 01/24/22 11:41 IV 02/22/22 23:59 80 mls/hr INFUSION SCOTT Administration IV Miscellaneous Supplies 1 each 01/24/22 06:00 Iv Access IV 02/22/22 23:59 DIRECTED SCOTT Ondansetron HCl 4 mg 01/23/22 16:30 Ondansetron 4 Mg/2 Ml Vial IVP Q4H PRN PRN Nausea / Vomiting Sodium Chloride 0 ml 01/24/22 06:00 Normal Saline Flush 10 Ml Syr IV 02/22/22 23:59 PRN PRN Sodium Chloride 0 ml 01/24/22 06:00 Normal Saline 10 Ml Vial IJ 02/22/22 23:59 DIRECTED PRN Sterile Water 0 ml 01/24/22 06:00 Water,Injection,Sterile 10 Ml Vial IJ 02/22/22 23:59 DIRECTED PRN PFSH Active Problems Active Problems: Problem Status Onset Code BPH (benign prostatic hyperplasia) N40.0 Open finger fracture S62.609B Small bowel obstruction K56.609 Cough R05 Body aches R52 Tobacco use disorder F17.200 Obesity E66.9 History of arthroscopy of knee Z98.890 Essential hypertension I10 Depression 12/26/14 F32.9 Medical History Medical History Hypertension Surgical History Surgical History Arthroplasty of knee (~2005) meniscus repair Arthroscopy left wrist DeQuervain's release Tobacco Smoking/Tobacco Use Status: Current every day Tobacco Type: smokeless tobacco Alcohol Alcohol Intake: never Substance Use Substance use: Never Substance use type: does not use Vital Signs and Lab Results Vital Signs Most Recent Vital Signs in EMR: Most Recent Vital Signs Temp Pulse Resp BP Pulse Ox 36.6 C 65 16 126/96 H 98 01/24/22 11:24 01/24/22 11:24 01/24/22 11:24 01/24/22 11:24 01/24/22 11:24 Lab Results Blood Type / Crossmatch: No Data to Display Complete Blood Count: No Data to Display Complete Metabolic Panel: No Data to Display Liver Function Panel: No Data to Display Coagulation Panel: No Data to Display Cardiac Panel: No Data to Display Arterial Blood Gas: No Data to Display Venous Blood Gas: No Data to Display Pancreas Panel: No Data to Display Thyroid Panel: No Data to Display Infectious Disease: Coronavirus (COVID-19)(PCR) Negative (Negative) 01/22/22 09:30 Coronavirus 2019 Source Nasal/Nares 01/22/22 09:30 Blood Cultures: No Data to Display Toxicology Panel: No Data to Display Anesthesia Assessment and Plan Anesthesia History Personal History: No History of Anesthesia Complications Family History: No Family History of Anesthesia Complications Exercise Tolerance Exercise Tolerance: Metabolic Equivalents>4 Pertinent Negatives Pertinent Negatives: No Symptoms of GERD, No Major Cardiovascular Symptoms or Complaints, No Major Pulmonary Symptoms or Complaints (Suspected YOAN) and No History of CVA/TIA Cardiac & Pulmonary Exam Cardiac Exam: Normal S1/S2 Heart Sounds Pulmonary Exam: Clear Bilateral Breath Sounds Implantable Cardiac Device Does patient have a Pacemaker or an ICD?: No Airway Exam Known Difficult Airway: No Mallampati Class: 4 Mouth Opening: Normal (> 3cm) Thyromental Distance: Greater than 3 cm Facial Hair: Full Lorenz Neck Range of Motion: Full ROM Neck Circumference: Normal Teeth Condition: Normal Dentition ASA Classification ASA Score: ASA 2 Emergency Case?: No NPO Status NPO Status: NPO Clears >2 hours, Solids >8 hours Anesthesia Plan Resuscitation Status: Full Code Anesthesia Technique: General Anesthesia Airway Planned: Natural Airway Monitors Used: Standard Monitors
[2022-01-24 11:58] VITALS: BMI 32.3
--- NOTE | 2022-01-24 12:14 | BOWEL_PTH ---
PATIENT: Alexis Sanchez LOC: [facility] U#:[id number] AGE/SX: 56/M ROOM: RE01/24/[address]: Radha Gibson : 1965 BED: DIS: 01/24/2022 SPEC #: [id number] RECD: 01/24/22 14:03 STATUS: [facility] #: [id number] AYDEN: 01/24/22 12:[address]: Radha Gibson DEPT: Surgical Specimen RECD BY: Nenita Portillo ENTERED: 01/24/22 14:07 SP TYPE: Bowel OTHR DR: Naldo Daily, DB2 DBA Tissues: 1 - BIOPSY BOWEL 2 - BIOPSY BOWEL 3 - STOMACH BIOPSY 4 - STOMACH BIOPSY 5 - ESOPHAGUS BIOPSY 6 - BIOPSY BOWEL 7 - BIOPSY BOWEL 8 - BIOPSY BOWEL 9 - BIOPSY BOWEL Procedures: GROSS AND MICRO LEVEL 4 Comments: [id number]
[2022-01-24 12:53] VITALS: BP 127/88; PULSE 77; RESP 24; TEMP 36.5; O2SAT 95
--- NOTE | 2022-01-24 12:56 | W.ANESPOSTOP ---
Postoperative Evaluation Date, Time and Location Date Performed: 01/24/22 Time Performed: 11:56 Patient Location: Day Surgery Unit Vital Signs Most Recent Imported Vital Signs: Most Recent Vital Signs Temp Pulse Resp BP Pulse Ox 36.6 C 65 16 126/96 H 98 01/24/22 11:24 01/24/22 11:24 01/24/22 11:24 01/24/22 11:24 01/24/22 11:24 Most Recent Manually Entered Vital Signs: Adult Blood Pressure: 127/88 Heart Rate: 79 Respirations: 14 Oxygen Saturation (%): 94 Temperature (C): 36.4 C Pain Score (0-10 Scale): 0 Pain Score Most Recent Pain Score: Most Recent Pain Score Pain Level 0 01/24/22 11:24 Assessment Mental Status: Awake (Alert & Oriented to Patient Baseline) Airway and Respiratory Function: Patent airway with normal (patient baseline) respiratory exam Cardiovascular Function: Hemodynamically Stable Hydration Status: Adequately Hydrated Nausea & Vomiting: No Nausea or Vomiting Pain: Pt. Denies Any Pain Peripheral Nerve Block: Patient did not receive a nerve block
[2022-01-24 12:57] VITALS: BP 127/88; PULSE 79; RESP 14; TEMPC 36.4; O2SAT 94
[2022-01-24] MEDS: Sucralfate 1 GM TAB PO (13:34)
[2022-01-24] MEDS: Normal Saline Flush 10 ML SYR IV (13:34)
[2022-01-24] MEDS: Pantoprazole 40 MG VIAL IVP (13:34)
[2022-01-24 13:40] VITALS: BP 111/90; PULSE 70; RESP 16; TEMP 36.6; O2SAT 94
== END 2022-01-24 14:23 | disposition home or self-care (01) ==
PROVIDERS: PCP Nurse Practitioner Family; Visit Provider Surgery
PROC: (CPT 43239; principal; 2022-01-24 11:45)
DX: Z12.11 Encounter for screening for malignant neoplasm of colon (principal); K64.0 First degree hemorrhoids; K57.30 Diverticulosis of large intestine without perforation or abscess without bleeding; K21.9 Gastro-esophageal reflux disease without esophagitis; K29.80 Duodenitis without bleeding; K29.70 Gastritis, unspecified, without bleeding; K22.10 Ulcer of esophagus without bleeding; K31.89 Other diseases of stomach and duodenum; K22.89 Other specified disease of esophagus
CPT/HCPCS: 43239; 45378; 88305

== ENCOUNTER 2022-05-08 15:25 | Outpatient (REF) | payer SELFPAY ==
[2022-05-08 21:52] LABS: CREATININE 1.2 mg/dL (0.70-1.30); Potassium 4.3 mmol/L (3.5-5.1)
== END 2022-05-08 15:26 | disposition home or self-care (01) ==
LOC: LBN 15:25
PROVIDERS: PCP Nurse Practitioner Family; Visit Provider Nurse Practitioner Family
DX: I10 Essential (primary) hypertension (principal)
CPT/HCPCS: 82565; 84132

== ENCOUNTER 2025-01-20 10:16 | Outpatient (CLI) | payer SELFPAY ==
[2025-01-20 09:47] LABS: Hemoglobin A1C 5.9 % (<5.7)
[2025-01-20 10:18] LABS: ALT 24 U/L (16-63); AST 18 U/L (15-37); Albumin 3.9 g/dL (3.4-5.0); Alkaline Phosphatase 106 U/L (46-116); Anion Gap 7.7 mmol/L (3-11); BUN 18 mg/dL (7-18); Bilirubin, Total 0.9 mg/dL (0.2-1.0); CO2 28.3 mmol/L (21.0-32.0); CREATININE 1.1 mg/dL (0.70-1.30); Calcium 9.2 mg/dL (8.5-10.1); Calculated LDL 156 mg/dL (<100); Chloride 103 mmol/L (98-107); Cholesterol 215 mg/dL (<200); Estimated GFR 77.33 (mL/min/1.73m2); Glucose 131 mg/dL (74-106); HDL Cholesterol 49 mg/dL (>or=40); Sodium 139 mmol/L (136-145); Total Protein 7.6 g/dL (6.4-8.2); Triglyceride 51 mg/dL (<150)
== END 2025-01-20 10:17 | disposition home or self-care (01) ==
LOC: LBO 10:16
PROVIDERS: PCP Nurse Practitioner Family; Visit Provider Nurse Practitioner Family
DX: I10 Essential (primary) hypertension (principal); Z13.220 Encounter for screening for lipoid disorders; Z13.1 Encounter for screening for diabetes mellitus
CPT/HCPCS: 36415; 80053; 80061; 83036

== ENCOUNTER 2025-04-08 14:35 | Emergency (ER) | payer SELFPAY ==
[2025-04-08 14:35] VITALS: BP 155/96; PULSE 70; RESP 16; TEMP 36.6; O2SAT 95
--- NOTE | 2025-04-08 14:45 | DI.CT_ITS ---
Exam(s) CT RENAL COLIC WO EXAM: CT RENAL COLIC WO CLINICAL HISTORY: eval kidney stone,hx same. TECHNIQUE: Imaging Protocol: Axial computed tomography images with coronal and sagittal reformatted images were created and reviewed. Oral: no COMPARISON: No exams were available for comparison FINDINGS: Lung Bases: No acute findings. Liver: Normal density. No suspicious mass. Gallbladder and biliary tract: No radiodense calculus or biliary dilation. Pancreas: Normal density. No abnormal calcifications or inflammatory process. Spleen: Normal. Kidneys: There is an 9 millimeter stone at the left ureteropelvic junction causing mild hydronephrosis. There is an additional 4 millimeter stone in the mid left kidney. There is some perinephric stranding. No right renal calculi are seen. No suspicious masses seen. Adrenal glands: No masses seen. Lymph nodes: Within normal limits. Vasculature: Abdominal aorta non-dilated. Soft tissues: Fat containing umbilical hernia. Fat seen within both inguinal canals. Bladder: No wall thickening. No mass or calculi. Bowel: No obstruction or bowel wall thickening. Diverticulosis. Appendix normal. Peritoneal cavity: No ascites. No focal collection. No mesenteric inflammatory response. Reproductive organs: Unremarkable. Bones: Unremarkable for age. IMPRESSION: Mild left hydronephrosis and perinephric stranding secondary to a 9 millimeter stone at the ureterovesical junction. Additional 4 millimeter left nonobstructing stone. The preliminary [facility] report was reviewed. RADIATION DOSE DELIVERED: Total DLP Total DLP Total DLP DATA REPOSITORY: All CT scans at this facility are submitted to the National Radiology Data Registry (NRDR) Dose Index Registry (DIR) with the [employer] (ACR). RADIATION OPTIMIZATION: All CT scans at this facility use at least one of these dose optimization techniques: automated exposure control; mA and/or kV adjustment per patient size (includes targeted exams where dose is matched to clinical indication); or iterative reconstruction.
--- NOTE | 2025-04-08 14:59 | W.ED.GENAD ---
Discharge Plan Disposition Patient Disposition: Home Condition: Stable Discharge Details Clinical Impression: Kidney stone Primary Care Provider: Naldo Daily ED Provider: Alie Gorman Recommendations for Follow Up Recommended tests to be ordered by follow up provider: santos in 5-7 days Home Meds and New Rx's Prescriptions: New tamsulosin 0.4 mg capsule 0.4 mg PO DAILY 14 Days Qty: 14 0RF oxycodone 5 mg tablet 5 mg PO Q6H PRNQty: 14 0RF ondansetron 4 mg tablet,disintegrating 4 mg PO Q8H PRNQty: 14 0RF No Action esomeprazole magnesium 40 mg capsule,delayed release(DR/EC) 40 mg PO DAILY Qty: 90 3RF lisinopril 20 mg tablet 20 mg PO HS Qty: 90 3RF amlodipine 10 mg tablet 10 mg PO DAILY Qty: 90 3RF Discharge Instructions Instructions: Kidney Stone, Adult ED Additional Instructions: You were seen in the emergency department today for evaluation of left flank pain and were found to have a 7 mm obstructing kidney stone. In our department you had a full physical examination performed and had laboratory studies that were largely reassuring, though I do note that your kidney function levels are slightly higher than normal for you. You were started on a medication called Flomax and should increase your hydration to help try to push the stone through. Please be cautious with position changes as standing up too quickly while on Flomax can cause dizziness. Please use therapeutic dosing of Tylenol (acetaminophen) & Advil (ibuprofen) in an alternating fashion as follows: Take 1000mg of Tylenol every 6 hours without missing doses- that is 4 times per day. Skilled Nursing in between the Tylenol doses, take 600mg of Advil also on a 6 hour schedule, that is also 4 times per day. With this strategy, you will be taking something for fever/pain as often as every 3 hours. The daily maximum dosing of Tylenol is 4000mg, and the daily maximum dosing of Advil is 2400mg. Please note that some common cold medications & prescription pain medications may contain acetaminophen and you need to read OTC drug labels and factor that in to maximum daily doses. I provided you with a short course of stronger pain medication to use for severe breakthrough pain, please avoid driving or operating machinery as this medication can cause sedation. I also provided you with a course of medication for nausea. I referred you to meet with Dr. Bradley in the urology clinic to discuss this case and reevaluate your kidney function and whether or not the stone is going to pass on its own. Please follow-up with your primary care provider in the next few days to discuss this visit and any symptoms that change, worsen, or persist. Thank you for allowing us to be part of your care. Referrals: Duke Bradley MD [ [facility] STAFF PHYSICIAN, Urology] - 5 days HPI General Mode of arrival: ambulatory. Date/Time Provider Initiated Documentation: 04/08/25 14:37. Limitations to Documentation: no limitations. Information obtained by: patient, family and old records reviewed. HPI Narrative: This is a 59-year-old male patient with a past medical history significant for GERD, hiatal hernia, and hypertension, presenting for evaluation of kidney stones. The patient states that he has had some stones in the past, they have all passed without the need for lithotripsy or surgical intervention. He states that last Thursday he had an onset of left flank pain, which resolved spontaneously. Today the pain recurred in the morning, and seems to be radiating around to his left lower quadrant of his abdomen. He states that he has felt cold all day but has not had measured fever, denies nausea and vomiting and has been able to drink water. He has been using Aleve and Tylenol for management of pain, states that he did not have Flomax at home and so has not been taking that medication. He states that he has passed to 2 stools today, urinated this morning but has had difficulty passing urine since that time. Related Data Home Medications ?Medication ?Instructions ?Recorded ?Confirmed lisinopril 20 mg tablet 20 mg PO HS #90 tabs 07/29/24 04/08/25 amlodipine 10 mg tablet 10 mg PO DAILY #90 tabs 10/19/24 04/08/25 esomeprazole magnesium 40 mg 40 mg PO DAILY #90 caps 01/13/25 04/08/25 capsule,delayed release ondansetron 4 mg disintegrating 4 mg PO Q8H PRN #14 tabs 04/08/25 tablet oxycodone 5 mg tablet 5 mg PO Q6H PRN #14 tabs 04/08/25 tamsulosin 0.4 mg capsule 0.4 mg PO DAILY 14 days #14 caps 04/08/25 Previous Rx's ?Medication ?Instructions ?Recorded lisinopril 20 mg tablet 20 mg PO HS #90 tabs 07/29/24 amlodipine 10 mg tablet 10 mg PO DAILY #90 tabs 10/19/24 esomeprazole magnesium 40 mg 40 mg PO DAILY #90 caps 01/13/25 capsule,delayed release ondansetron 4 mg disintegrating 4 mg PO Q8H PRN #14 tabs 04/08/25 tablet oxycodone 5 mg tablet 5 mg PO Q6H PRN #14 tabs 04/08/25 tamsulosin 0.4 mg capsule 0.4 mg PO DAILY 14 days #14 caps 04/08/25 Allergies Allergy/AdvReac Type Severity Reaction Status Date / Time shellfish derived Allergy Severe THROAT Verified 04/08/25 14:41 CLOSES General Stated Complaint: FlankPain BENNY: 3 Exam Narrative Exam Narrative: Gen: Awake and alert, in no apparent distress HEENT: Non-icteric sclera Neck: Supple Lungs: No apparent respiratory distress, normal respiratory effort. CV: Appears well perfused, strong distal pulses Abdomen: Non-distended, soft, nontender to palpation along the left groin, no rigidity, rebound, or guarding. The patient has a soft and easily reducible umbilical hernia with no overlying skin changes. Left CVA tenderness is present, no overlying skin changes. MSK: Moves 4 extremities without apparent limitation in ROM. No midline back pain or step-offs Skin: Visualized skin without rashes, cyanosis. Neuro: Normal Gait, no obvious focal deficits or facial asymmetry. Speaks in full, clear sentences. Psych: Appropriate for situation. Course Vital Signs Vital signs: Vital Signs Temperature 36.6 C 04/08/25 14:35 Pulse 70 04/08/25 14:35 Respiratory Rate 16 04/08/25 14:35 Blood Pressure 155/96 H 04/08/25 14:35 Pulse Oximetry 95 04/08/25 14:35 Temperature 36.6 C 04/08/25 14:35 Temperature Source Tympanic 04/08/25 14:35 Pulse 70 04/08/25 14:35 Respiratory Rate 16 04/08/25 14:35 Blood Pressure 155/96 H 04/08/25 14:35 Blood Pressure Position Sitting 04/08/25 14:35 Pulse Oximetry 95 04/08/25 14:35 Oxygen Delivery Method Room Air 04/08/25 14:35 Oxygen Flow Rate 0 04/08/25 14:35 Pain Level 6 04/08/25 14:35 Medical Decision Making This is a 59-year-old male patient presenting for evaluation of left-sided flank pain. My differential includes but is not limited to kidney stone, UTI/pyelonephritis, certainly considered kidney injury. Considered metabolic and electrolyte derangements, dehydration. The patient had a CT scan in 2020 that did not show any dilation of the abdominal aorta, and he has no characteristic abdominal pain to suggest AAA. No evidence of bowel obstruction on history or physical examination, did consider diverticulitis that this is less consistent with his history and physical. No musculoskeletal reproduction of the pain, no evidence of herpes zoster on physical examination. We will obtain laboratory studies to include CBC, CMP, magnesium, lipase, and urinalysis. I will provide the patient with a liter of IV fluids and Toradol for initial management of pain. We will obtain a CT renal stone protocol. - I reviewed the patient's labs, he has a very mild leukocytosis but no anemia or thrombocytopenia. Chemistry panel reveals no electrolyte derangements, BUN and creatinine slightly elevated above the patient's baseline, no liver enzyme abnormalities. Lipase slightly elevated 167 but below 3 times the upper limit of normal, and without clinical evidence of pancreatitis on my exam I have a lower concern for this condition. Urinalysis shows large blood but no infectious findings to suggest infected stone. CT reviewed by myself, showing a 7 mm stone in the left ureter, with associated hydronephrosis. I provided the patient with a dose of Flomax and his pain was significantly improved. I recommended multimodal pain management, provided him with prescriptions for oxycodone, Flomax, and Zofran, and provided him with a referral to urology for repeat renal function tests as well as potential surgical intervention given the size of the stone. At this time, the patient has had a full medical evaluation and is safe for discharge to home. They are hemodynamically stable, ambulatory, and tolerating PO. They are understanding of the follow-up plan and return precautions. They left our facility without incident. Alie Gorman MD Quality:SDOH Health Related Social Needs: Health related social needs material hardship PFSH All Active Problems (Updated 04/08/25 @ 17:05 by Alie Gorman MD) Kidney stone (Chronic) Unilateral edema of lower extremity (Acute) Adenomatous colon polyp (Acute) repeat CE in 2026 Esophageal ulcer without bleeding (Acute) Erosive esophagitis (Acute) Chronic GERD (Acute) Tubular adenoma (Acute ~01/24/22) Repeat colonoscopy in 2026 BPH (benign prostatic hyperplasia) (Chronic) Tobacco use disorder (Acute) chews Obesity (Acute) Essential hypertension (Acute) Medical History (Updated 04/08/25 @ 17:05 by Alie Gorman MD) Small bowel obstruction Surgical History (Updated 05/08/22 @ 14:27 by Naldo Daily NP) History of esophagogastroduodenoscopy (EGD) (~01/24/22) History of colonoscopy with polypectomy (~01/24/22) History of arthroscopy of knee Arthroplasty of knee (~2005) meniscus repair Arthroscopy left wrist DeQuervain's release Social History (Updated 01/17/22 @ 10:02 by ABELINO Carlton) Smoking/Tobacco Use Status: Current every day Tobacco Type: smokeless tobacco Smoking risk assessment performed?: Yes Alcohol Intake: never Drug use: Never Substance use type: does not use Counseling given: No Do you feel safe at home: Yes Do you feel safe in your relationship?: Yes
[2025-04-08] MEDS: Ketorolac 15 MG/ML VIAL IVP (15:23)
[2025-04-08] MEDS: Lactated Ringers 1,000 ML 1000 ML IV (15:23)
[2025-04-08 15:30] VITALS: BP 155/96; PULSE 70; RESP 16; TEMP 36.6; O2SAT 95
[2025-04-08 15:36] LABS: Abs Immature Grans 0.05 10^3/uL (0.0-0.06); HCT 41.8 % (40.0-50.0); HGB 14.1 g/dL (13.5-17.5); Immature Grans % 0.4 %; MCH 29.1 pg (27.0-33.0); MCHC 33.7 % (32.0-36.0); MCV 86 fL (80-95); MPV 9.9 fL (8.0-11.0); Platelet Count 262 10^3/uL (130-400); RBC 4.84 10^6/uL (4.36-5.78); RDW 12.8 % (11.8-14.1); RDW-SD 40.7 fL; WBC 13.03 10^3/uL (4.4-10.8)
[2025-04-08 15:57] LABS: Glucose Negative (Negative)
[2025-04-08 15:59] LABS: ALT 32 U/L (16-63); AST 21 U/L (15-37); Albumin 3.9 g/dL (3.4-5.0); Alkaline Phosphatase 105 U/L (46-116); Anion Gap 8.5 mmol/L (3-11); BUN 24 mg/dL (7-18); Bilirubin, Total 0.9 mg/dL (0.2-1.0); CO2 27.5 mmol/L (21.0-32.0); Calcium 9.1 mg/dL (8.5-10.1); Chloride 99 mmol/L (98-107); Estimated GFR 57.90 (mL/min/1.73m2); Glucose 101 mg/dL (74-106); Lipase 167 U/L (<78); Magnesium 1.9 mg/dL (1.8-2.4); Potassium 4.2 mmol/L (3.5-5.1); Sodium 135 mmol/L (136-145); Total Protein 7.4 g/dL (6.4-8.2)
[2025-04-08] MEDS: Tamsulosin 0.4 MG CAPCR PO (16:21)
[2025-04-08 16:22] LABS: C & S Indicated? No; WBC 0-2 HPF (0-5)
--- NOTE | 2025-04-08 16:53 | DI.VRAD_ITS ---
PROCEDURE INFORMATION: Exam: CT Abdomen And Pelvis Without Contrast Exam date and time: 04/08/2025 3:28 PM Age: 59 years old Clinical indication: Screening exam; Eval kidney stone, HX same TECHNIQUE: Imaging protocol: Computed tomography of the abdomen and pelvis without contrast. COMPARISON: CT ABDOMEN PELVIS W 02/22/2021 10:11 PM FINDINGS: Liver: Normal. No mass. Gallbladder and biliary ducts: Normal. No calcified stones. No ductal dilation. Pancreas: Normal. No ductal dilation. Spleen: Normal. No splenomegaly. Adrenal glands: Normal. No mass. Kidneys and ureters: There is left perinephric edema. Nonobstructing left renal calculus. The left kidney appears enlarged. There is [id number] hydronephrosis with a left UPJ obstructing calculus measuring less than 7 mm in diameter series 3, image 54. Stomach and bowel: Diverticulosis without acute diverticulitis. No abnormal bowel distension or wall thickening. Appendix: The appendix is well seen, within normal limits. Intraperitoneal space: Unremarkable. No free air. No significant fluid collection. Vasculature: Moderate atherosclerotic change again seen in the vasculature. Lymph nodes: Unremarkable. No enlarged lymph nodes. Urinary bladder: Unremarkable as visualized. Reproductive: Unremarkable as visualized. Bones/joints: Moderate to severe lumbar spondylosis. Soft tissues: There is a moderate-sized, fat containing periumbilical hernia again seen. Small, fat containing right inguinal hernia again noted. IMPRESSION: Left UPJ obstructing calculus. Dictated and Authenticated by: Neli Cope MD. Orderin [facility] Strange MD
[2025-04-08 17:19] VITALS: BP 134/74; PULSE 57; RESP 16; O2SAT 96
--- NOTE | 2025-05-01 12:03 | ANES.PREOP_ITS ---
General Info Date of Service Date Performed: 05/01/25 Height: 6 ft Weight: 113.398 kg Body Mass Index (BMI): 33.9 Meds Allergies and Home Medications Allergies Allergy/AdvReac Type Severity Reaction Status Date / Time shellfish derived Allergy Severe THROAT Verified 05/01/25 10:31 CLOSES Home Medication ?Medication ?Instructions ?Recorded lisinopril 20 mg tablet 20 mg PO HS #90 tabs 4 amlodipine 10 mg tablet 10 mg PO DAILY #90 tabs 02/05 esomeprazole magnesium 40 mg 40 mg PO DAILY #90 caps 0 01/13/25 capsule,delayed release PFSH Active Problems Active Problems: Problem Status Onset Code Left ureteral stone Acute N20.1 Kidney stone Chronic N20.0 Unilateral edema of lower extremity Acute R60.0 Adenomatous colon polyp Acute D12.6 Esophageal ulcer without bleeding Acute K22.10 Erosive esophagitis Acute K22.10 Chronic GERD Acute K21.9 Tubular adenoma Acute ~01/24/22 D36.9 BPH (benign prostatic hyperplasia) Chronic N40.0 Tobacco use disorder Acute F17.200 Obesity Acute E66.9 Essential hypertension Acute I10 Medical History Medical History Small bowel obstruction Surgical History Surgical History History of esophagogastroduodenoscopy (EGD) (~01/24/22) History of colonoscopy with polypectomy (~01/24/22) History of arthroscopy of knee Arthroplasty of knee (~2005) meniscus repair Arthroscopy left wrist DeQuervain's release Tobacco Smoking/Tobacco Use Status: Current every day Tobacco Type: smokeless tobacco Alcohol Alcohol Intake: current Alcohol intake frequency: a few times a week Alcohol type: beer Substance Use Substance use: Never Substance use type: does not use Vital Signs and Lab Results Vital Signs Most Recent Vital Signs in EMR: Most Recent Vital Signs Temp Pulse Resp BP Pulse Ox 36.6 C 57 L 16 134/74 96 04/08/25 15:30 04/08/25 17:19 04/08/25 17:19 04/08/25 17:19 04/08/25 17:19 Lab Results 04/08/25 15:22 04/08/25 15:22 Complete Blood Count: 2 WBC, (4.4-10.8) 13.03 10^3/uL H 04/08/25, 15:22 RBC, (4.36-5.78) 4.84 10^6/uL 04/08/25, 15:22 Hgb, (13.5-17.5) 14.1 g/dL 04/08/25, 15:22 Hct, (40.0-50.0) 41.8 % 04/08/25, 15:22 Plt Count, (130-400) 262 10^3/uL 04/08/25, 15:22 Complete Metabolic Panel: 2 Sodium, (136-145) 135 mmol/L L 04/08/25, 15:22 Potassium, (3.5-5.1) 4.2 mmol/L 04/08/25, 15:22 Chloride, (98-107) 99 mmol/L 04/08/25, 15:22 Carbon Dioxide, (21.0-32.0) 27.5 mmol/L 04/08/25, 15 :22 BUN, (7-18) 24 mg/dL H 04/08/25, 15:22 Creatinine, (0.70-1.30) 1.4 mg/dL H 04/08/25, 15:22 Est GFR (CKD-EPI 2020), (mL/min/1.73m2) 57.90 04/08/25, 15:22 Magnesium, (1.8-2.4) 1.9 mg/dL 04/08/25, 15:22 Calcium, (8.5-10.1) 9.1 mg/dL 04/08/25, 15:22 Albumin, (3.4-5.0) 3.9 g/dL 04/08/25, 15:22 Glucose, (74-106) 101 mg/dL 04/08/25, 15:22 Liver Function Panel: 2 ALT, (16-63) 32 U/L 04/08/25, 15:22 AST, (15-37) 21 U/L 04/08/25, 15:22 Pancreas Panel: 2 Lipase, (<78) 167 U/L H 04/08/25, 15:22 Imaging and Studies Imaging and Studies Study information below may be from another EMR and interpreted by another provider. Please see original notes in EMR for more complete details. EKG Summary: EKG PATIENT NAME: FLETCHER DUBOIS UNIT #: [id number] ORDERING PROVIDER: Ray Washington M.D. PRIMARY CARE PROVIDER: ANA CRISTINA PETERSEN DO DATE/TIME OF SERVICE: 12/06/20 1431 : 1965 PERFORMING LOCATION: ER APPROVED REPORT Exam: Resting ECG Patient Location: E HR:91 bpm ECG Measurements Heart Rate 91 AXIS FL 65 P 75 QRSd 121 QRS 14 QT 332 T51 QTc 409 Conclusion Sinus rhythm...normal P axis, V-rate 60- 99 Nonspecific intraventricular conduction delay...QRSd >115mS, not LBBB/RBBB Abnormal T, consider ischemia, lateral leads...T <-0.20mV, I aVL V5 V6 sinus rhythm at 91, normal axis, nonspecific ST changes, no STEMI, nondiagnostic EKG - <Electronically signed by RAY WASHINGTON MD in [facility]> E-Sign Date: 12/06/20 E-Sign Time: 1435 ADDENDUM APPROVED REPORT Exam: Resting ECG Patient Location: E HR:91 bpm ECG Measurements Heart Rate 91 AXIS FL 65 P 75 QRSd 121 QRS 14 QT 332 T51 QTc 409 Conclusion Sinus rhythm...normal P axis, V-rate 60- 99 Nonspecific intraventricular conduction delay...QRSd >115mS, not LBBB/RBBB Abnormal T, consider ischemia, lateral leads...T <-0.20mV, I aVL V5 V6 sinus rhythm at 91, normal axis, nonspecific ST changes, no STEMI, nondiagnostic EKG I have reviewed and I agree with the emergency room physician's ECG interpretation. Electronically signed by: <Electronically signed by Phuc Hager M.D. in [facility]> 12/06/20 1525 Cosigned by: Anesthesia Assessment and Plan Anesthesia History Personal History: No History of Anesthesia Complications Family History: No Family History of Anesthesia Complications Exercise Tolerance Exercise Tolerance: Metabolic Equivalents>4 Pertinent Negatives Pertinent Negatives: No Symptoms of GERD, No Major Cardiovascular Symptoms or Complaints, No Major Pulmonary Symptoms or Complaints (Suspected YOAN) and No History of CVA/TIA Cardiac & Pulmonary Exam Cardiac Exam: Normal S1/S2 Heart Sounds Pulmonary Exam: Clear Bilateral Breath Sounds Implantable Cardiac Device Does patient have a Pacemaker or an ICD?: No Airway Exam Known Difficult Airway: No Mallampati Class: 3 Mouth Opening: Normal (> 3cm) Thyromental Distance: Greater than 3 cm Facial Hair: Full Lorenz Neck Range of Motion: Full ROM Neck Circumference: Normal Teeth Condition: Normal Dentition ASA Classification ASA Score: ASA 2 Emergency Case?: Yes NPO Status NPO Status: NPO Clears >2 hours, Solids >8 hours Anesthesia Plan Resuscitation Status: Full Code Anesthesia Technique: General Anesthesia Airway Planned: Endotracheal Tube Monitors Used: Standard Monitors
[2025-05-01 12:04] VITALS: BMI 33.9
== END 2025-04-08 17:18 | disposition home or self-care (01) ==
PROVIDERS: Emergency Provider Emergency Medicine; PCP Nurse Practitioner Family
DX: N13.2 Hydronephrosis with renal and ureteral calculous obstruction (principal); I10 Essential (primary) hypertension
CPT/HCPCS: 80053; 83690; 96361; 96374; 99284; 74176; 81003; 81015; 83735; 85025; J1885

== ENCOUNTER 2025-05-01 10:08 | Day surgery (SDC) | payer SELFPAY ==
[2025-05-01] VITALS (27 sets, daily range): BP systolic 105–128; BP diastolic 75–95; PULSE 45–67; RESP 11–25; TEMP 35.9–36.5; O2SAT 93–98
[2025-05-01] MEDS: Lactated Ringers 1,000 ML 30 ML IV (10:48)
--- NOTE | 2025-05-01 12:07 | W.PM.HP.N ---
Date of service: 05/01/25 Time of Service: 12:07 Assessment and Plan Assessment and plan (1) Left ureteral stone: Status: Acute Assessment and plan: He has failed conservative management so we will bring him to the operating room urgently for cystoscopy, left retrograde pyelogram and placement of a ureteral stent to relieve his obstruction. If we are able, we will perform ureteroscopy and holmium laser lithotripsy of his stone as well. History of Present Illness History of Present Illness Chief Complaint: Left ureteral stone Narrative: This is a 59-year-old gentleman who initially presented with renal colic. He was found to have a 9 mm ureteral stone but had no signs of urinary tract infection or sepsis. He was treated conservatively as an outpatient with analgesics and alpha blockers. When I initially saw him in the office, he was asymptomatic and he had no hydronephrosis on ultrasound. Since that time, he has had multiple occurrences of renal colic 1 of which required a trip to an emergency department in [place], [place]. Because of his failure to progress and tolerate conservative management, he presents for stone manipulation. Review of Systems Narrative: No fevers or chills No vision change or dysphasia No diabetes or thyroid dysfunction No shortness of breath, cough or hemoptysis No chest pain or palpitations GERD. No nausea, vomiting, hepatitis, ulcers, jaundice No seizures, strokes or peripheral neuropathy No bleeding disorders or anemia No gout or arthralgia PFSH All Active Problems Left ureteral stone (Acute) Kidney stone (Chronic) Unilateral edema of lower extremity (Acute) Adenomatous colon polyp (Acute) repeat CE in 2026 Esophageal ulcer without bleeding (Acute) Erosive esophagitis (Acute) Chronic GERD (Acute) Tubular adenoma (Acute ~01/24/22) Repeat colonoscopy in 2026 BPH (benign prostatic hyperplasia) (Chronic) Tobacco use disorder (Acute) chews Obesity (Acute) Essential hypertension (Acute) Medical History Small bowel obstruction Surgical History History of esophagogastroduodenoscopy (EGD) (~01/24/22) History of colonoscopy with polypectomy (~01/24/22) History of arthroscopy of knee Arthroplasty of knee (~2005) meniscus repair Arthroscopy left wrist DeQuervain's release Social History (Updated 01/17/22 @ 10:02 by ABELINO Carlton) Smoking/Tobacco Use Status: Current every day Tobacco Type: smokeless tobacco Smoking risk assessment performed?: Yes Alcohol Intake: current Alcohol Intake frequency: a few times a week Alcohol type: beer Drug use: Never Substance use type: does not use Counseling given: No Do you feel safe at home: Yes Do you feel safe in your relationship?: Yes Meds Allergies and Home Medications Allergies Allergy/AdvReac Type Severity Reaction Status Date / Time shellfish derived Allergy Severe THROAT Verified 05/01/25 10:31 CLOSES Home Medications ?Medication ?Instructions ?Recorded ?Confirmed ?Type lisinopril 20 mg tablet 20 mg PO HS #90 tabs 07/29/24 05/01/25 Rx amlodipine 10 mg tablet 10 mg PO DAILY #90 tabs 10/19/24 05/01/25 Rx esomeprazole magnesium 40 mg 40 mg PO DAILY #90 caps 01/13/25 05/01/25 Rx capsule,delayed release Exam Const General: cooperative Neck Neck: supple Resp Effort & Inspection: normal respiratory effort Auscultation: clear to auscultation bilaterally Cardio Rate: regular rate Rhythm: regular rhythm GI Palpation: soft and no masses Neuro General: patient alert, patient awake and patient oriented x3 Results Last Vital Signs Temp 36.2 C L 05/01/25 10:33 Pulse 60 05/01/25 10:33 Resp 17 05/01/25 10:33 BP 116/82 05/01/25 10:33 Pulse Ox 98 05/01/25 10:33 Time Spent Time spent with Patient: <40 minutes Time was spent: other
[2025-05-01] MEDS: ceFAZolin 2 GM/50 ML BAG IVPB (14:00)
[2025-05-01] MEDS: Lidocaine 2% Jelly 11 ML SYR (14:17)
[2025-05-01] MEDS: Omnipaque 300 MG/ML 50 ML BTL (14:17)
--- NOTE | 2025-05-01 15:18 | W.PM.DSUDISC ---
Date of service: 05/01/25 Discharge Plan Disposition Patient Disposition: Home Condition: Stable Discharge Details Reason For Visit: ureteroscopy and stone removal Attending Provider: Duke Bradley Primary Care Provider: Naldo Daily Home Meds and New Rx's Prescriptions: No Action esomeprazole magnesium 40 mg capsule,delayed release(DR/EC) 40 mg PO DAILY Qty: 90 3RF lisinopril 20 mg tablet 20 mg PO HS Qty: 90 3RF amlodipine 10 mg tablet 10 mg PO DAILY Qty: 90 3RF Discharge Instructions Additional Instructions: There is no need to strain your urine Follow-up appointment with me in 2 to 3 weeks. At that time, we will do a cystoscopy to remove your stent, do an ultrasound on your kidney and review your stones chemical composition You do have a stent in place. While the stent is there, you may urinate more frequently, he may see some blood in your urine and you may have discomfort when you urinate. Activity:: No strenuous activity for 48 hours at a minimum Shower/Bathe:: 24 hours Diet:: As Tolerated DS: Diagnosis Discharge Diagnosis (1) Left ureteral stone: Status: Acute
--- NOTE | 2025-05-01 15:22 | ROE_ITS ---
Operative Note Operative Note PRE-OP DIAGNOSIS: left ureteral stone POST-OP DIAGNOSIS: same PROCEDURE: Cystoscopy, left retrograde pyelogram, left ureteral dilation, left ureteroscopy with stone extraction, insert left ureteral stent SURGEON: Duke Bradley ANESTHESIA TYPE: Local By Surgeon and General LMA/ETT Refer to Anesthesia Record ESTIMATED BLOOD LOSS: 5 PATHOLOGY: other (stone for chemical analysis) COMPLICATIONS: None Patient was transported to: PACU Patient's condition: stable Implants: 6 Cambodian by 22 to 30 cm left ureteral stent Indications: This is a 59-year-old gentleman who initially presented with a left proximal ureteral stone. The stone was quite large, but he had no signs of sepsis so we elected to treat him conservatively. Over the next week, he had multiple episodes of renal colic and in fact had a visit to an outlying hospital for treatment. Because of his lack of progression, he presents now for stone manipulation Findings: Stone had migrated into the distal ureter Procedure Description: The patient was given IV antibiotics and brought to the operating room on 05/01/2025. After successful induction of general anesthesia, he was placed in the dorsal lithotomy position. His genitalia was prepped and draped. 2% Xylocaine jelly was instilled into the urethra to act as a local anesthetic. The 22 Cambodian rigid cystoscope was passed through the urethra into the bladder. The urethra and bladder were inspected with a 30 degree lens. The pendulous, bulbar and membranous urethra appeared normal with no strictures. The prostatic urethra showed some lateral lobe enlargement but no significant median lobe. The bladder neck was entered and the bladder mucosa was inspected. Both ureteral orifices appeared normal in configuration and location. The left orifice was cannulated with a 5 Cambodian access catheter and a retrograde pyelogra m was obtained by injecting Omnipaque through the access catheter under fluoroscopic guidance. There appeared to be a radio opaque filling defect in the left distal ureter consistent with distal migration of his stone. I then passed a guidewire through the lumen of the access catheter and removed the access catheter. I dilated the distal ureter using a 4 cm UroMax balloon. I then passed a semirigid ureteroscope through the urethra up the left ureter until the stone was visualized. I then grasped the stone in a Opal stone basket and extracted the stone in its entirety. During the stone extraction, I lost access to my safety wire. I attempted to pass a ureteral access catheter back up the left ureter but met significant resistance. Finally, I was able to pass a guidewire through the lumen of the access catheter and advanced a 6 Cambodian variable length stent over the wire. The proximal end of the stent appeared to be in the renal pelvis and the distal end appeared to be within the bladder. The positioning of the stent was confirmed both fluoroscopically and cystoscopically. The bladder was emptied and the cystoscope was withdrawn. The patient tolerated the procedure well with no complications. Date of Procedure: 05/01/25
[2025-05-01] MEDS: ACETAMINOPHEN 1,000 MG/100 ML BAG 400 MG IVPB (15:38)
--- NOTE | 2025-05-01 15:51 | DI.RAD_ITS ---
Exam(s) XR RETROGRADE IN OR EXAM: XR RETROGRADE IN OR CLINICAL HISTORY: LEFT URETERAL STONE. TECHNIQUE: Fluoroscopy was provided for the referring physician for guidance with performing retrograde procedure. COMPARISON: CT CT RENAL COLIC WO from 04/08/2025 FINDINGS: Please see procedure note for details. Fluoro time: 1 minute 35 seconds RADIATION DOSE DELIVERED: duncan Morataya=35.0 mGy
--- NOTE | 2025-05-01 16:25 | W.ANESPOSTOP ---
Postoperative Evaluation Date, Time and Location Date Performed: 05/01/25 Time Performed: 16:25 Patient Location: Day Surgery Unit Vital Signs Most Recent Imported Vital Signs: Most Recent Vital Signs Temp Pulse Resp BP Pulse Ox 35.9 C L 56 L 16 111/88 94 05/01/25 16:08 05/01/25 16:08 05/01/25 16:08 05/01/25 16:08 05/01/25 16:08 Pain Score Most Recent Pain Score: Most Recent Pain Score Pain Level 0 05/01/25 16:08 Assessment Mental Status: Awake (Alert & Oriented to Patient Baseline) Airway and Respiratory Function: Patent airway with normal (patient baseline) respiratory exam Cardiovascular Function: Hemodynamically Stable Hydration Status: Adequately Hydrated Nausea & Vomiting: No Nausea or Vomiting Pain: Pt. Denies Any Pain Peripheral Nerve Block: Patient did not receive a nerve block
[2025-05-01] MEDS: Phenazopyridine 200 MG TAB PO (16:43)
[2025-05-01] MEDS: oxyCODONE 5 MG TAB 10 MG PO (16:58)
== END 2025-05-01 17:35 | disposition home or self-care (01) ==
PROVIDERS: PCP Nurse Practitioner Family; Visit Provider Urology
PROC: (CPT 52352; principal; 2025-05-01 12:30)
DX: N20.1 Calculus of ureter (principal); I10 Essential (primary) hypertension; F17.220 Nicotine dependence, chewing tobacco, uncomplicated; E66.9 Obesity, unspecified; N40.0 Benign prostatic hyperplasia without lower urinary tract symptoms; K21.9 Gastro-esophageal reflux disease without esophagitis
CPT/HCPCS: 52352; 52332; 74420; 82365; J0131; J0690; J1100; J1885; J2003; J2250; J2405; J2704; Q9967

== ENCOUNTER → 2025-08-18 13:36 | Outpatient (CLI) | payer OTHER, SELFPAY ==
--- NOTE | 2025-08-18 11:30 | DI.MRI_ITS ---
Exam(s) MR UPPER EXTREMITY LT WO EXAM: MR UPPER EXTREMITY LT WO CLINICAL HISTORY: Bicep tear/fall with injury, biceps muscle tear, S46.219A strain TECHNIQUE: Multiplanar multisequence MRI was performed without intravenous contrast. COMPARISON: No exams were available for comparison FINDINGS: MARROW: There is no evidence of fracture, bone contusion, nor ominous osseous lesions. ELBOW JOINT: There is no evidence of prominent elbow joint effusion.No significant cartilage loss nor osteochondral defect and there is no evidence of loose intra-articular body. There appears to be a small subarticular cyst at the level the capitellum, without surrounding bone edema. There are no os teophytes. EPICONDYLES: There is some increased signal evident within both the common flexor and extensor tendons at the level both epicondyles consistent with an element of bilateral epicondylitis. There are no high-grade tears of the common flexor and extensor tendons and there is no abnormal intraosseous edema in either epicondyle of the distal humerus. ULNAR COLLATERAL LIGAMENT: The anterior band which extends from the medial epicondyle to the sublime tubercle of the coronoid process of the ulna is intact. This structure is the strongest ligament in the elbow and is the main opponent to severe valgus stress. RADIAL COLLATERAL LIGAMENT: No obvious tear. TENDONS: There is a prominent full-thickness tear of the biceps tendon with retraction of the torn tendon to approximately 8 cm above the elbow joint level and there is significant amount of surrounding posttraumatic fluid around the torn tendon edge. There is no abnormal intraosseous signal in the proximal radius-radial tuberosity region attachment site of the biceps tendon. No evidence to suggest avulsion fracture at this level. The brachialis tendon is intact. The triceps tendon is intact. CUBITAL TUNNEL/ULNAR NERVE: The ulnar nerve appears unremarkable beneath the cubital tunnel retinaculum/ arcuate ligament and posterior to the medial epicondyle. There is no evidence of arthritic spur arising from the epicondyle nor olecranon causing impingement on the ulnar nerve. There is no evidence of accessory anconeus muscle causing impingement at this level. There is also no evidence of soft tissue mass nor ganglia on cyst causing impingement at this level. IMPRESSION: 1. There is a complete full-thickness tear of the biceps tendon with retraction of the torn tendon edge to a level 8 cm above the elbow joint. There is abundant surrounding fluid around the torn and retracted biceps tendon. 2. There are findings consistent with both medial and lateral epicondylitis, with increased signal within both the common extensor and common flexor tendons at the level the epicondyles. There is no abnormal intraosseous signal at the level of the epicondyles. DATA REPOSITORY:
== END ==
LOC: DI 13:37
PROVIDERS: PCP Nurse Practitioner Family; Visit Provider Nurse Practitioner Family
DX: S46.219A Strain of muscle, fascia and tendon of other parts of biceps, unspecified arm, initial encounter (principal)
CPT/HCPCS: 73218

== ENCOUNTER 2025-08-25 08:51 | Day surgery (SDC) | payer OTHER, SELFPAY ==
--- NOTE | 2025-08-24 16:55 | W.ANESPRE ---
General Info Date of Service Date Performed: 08/25/25 Height: 6 ft Weight: 113.398 kg Body Mass Index (BMI): 33.9 Surgical Procedure: Operation Date: 08/25/25 11:55 Proposed Procedure Side Surgeon p Elbow Bicep Tendon Repair LEFT Left Álvaro Luong MD Meds Allergies and Home Medications Allergies Allergy/AdvReac Type Severity Reaction Status Date / Time shellfish derived Allergy Severe THROAT Verified 08/25/25 09:29 CLOSES Home Medication ?Medication ?Instructions ?Recorded lisinopril 20 mg tablet 20 mg PO HS #90 tabs 07/29/24 amlodipine 10 mg tablet 10 mg PO HS 08/24/25 esomeprazole magnesium 40 mg 40 mg PO HS 08/24/25 capsule,delayed release naproxen 250 mg tablet 250 - 500 mg (1 - 2 x 250 mg) PO 08/25/25 BID PRN moderate pain and swelling #40 tabs oxycodone 5 mg tablet 5 - 10 mg (1 - 2 x 5 mg) PO .q4-6h 08/25/25 PRN severe pain #18 tabs Current Visit Medications: Current Medications Generic Name Dose Route Start Last Admin Trade Name Freq PRN Reason Stop Dose Admin Ringer's Solution 1,000 mls @ 30 mls/hr 08/25/25 06:00 IV 08/25/25 23:59 INFUSION SCOTT Cefazolin Sodium 3,000 mg/ 100 mls @ 200 mls/hr 08/25/25 06:00 Sodium Chloride IV 08/25/25 23:59 PREOP SCOTT Tranexamic Acid/Sodium Chloride 1,000 mg in 100 mls @ 600 mls/hr 08/25/25 06:00 IVPB 08/25/25 23:59 PREOP SCOTT Sodium Chloride 0 ml 08/25/25 06:00 Normal Saline Flush 10 Ml Syr IV 08/25/25 23:59 PRN PRN Sodium Chloride 0 ml 08/25/25 06:00 Normal Saline 10 Ml Vial IJ 08/25/25 23:59 DIRECTED PRN Sterile Water 0 ml 08/25/25 06:00 Water,Injection,Sterile 10 Ml Vial IJ 08/25/25 23:59 DIRECTED PRN PFSH Active Problems Active Problems: Problem Status Onset Code Traumatic rupture of left distal biceps tendon Acute 07/24/25 S46.212A Unilateral edema of lower extremity Acute R60.0 Adenomatous colon polyp Acute D12.6 Esophageal ulcer without bleeding Acute K22.10 Erosive esophagitis Acute K22.10 Chronic GERD Acute K21.9 Tubular adenoma Acute ~01/24/22 D36.9 BPH (benign prostatic hyperplasia) Chronic N40.0 Tobacco use disorder Acute F17.200 Obesity Acute E66.9 Essential hypertension Acute I10 Medical History Medical History Left ureteral stone Small bowel obstruction Surgical History Surgical History History of esophagogastroduodenoscopy (EGD) (~01/24/22) History of colonoscopy with polypectomy (~01/24/22) History of arthroscopy of knee Arthroplasty of knee (~2005) meniscus repair Arthroscopy left wrist DeQuervain's release Tobacco Smoking/Tobacco Use Status: Current every day Tobacco Type: smokeless tobacco Passive smoking exposure: No Alcohol Alcohol Intake: former Substance Use Substance use: Never Substance use type: does not use Vital Signs and Lab Results Vital Signs Comment Vital Signs Comment:: Temp Pulse Resp BP Pulse Ox 37 C 62 18 119/78 100 08/25/25 08:58 08/25/25 08:58 08/25/25 08:58 08/25/25 08:58 08/25/25 08:58 Imaging and Studies Imaging and Studies Study information below may be from another EMR and interpreted by another provider. Please see original notes in EMR for more complete details. EKG Summary: 12/06/20 Exam: Resting ECG Patient Location: E HR:91 bpm ECG Measurements Heart Rate 91 AXIS WA 65 P 75 QRSd 121 QRS 14 QT 332 T51 QTc 409 Conclusion Sinus rhythm...normal P axis, V-rate 60- 99 Nonspecific intraventricular conduction delay...QRSd >115mS, not LBBB/RBBB Abnormal T, consider ischemia, lateral leads...T <-0.20mV, I aVL V5 V6 sinus rhythm at 91, normal axis, nonspecific ST changes, no STEMI, nondiagnostic EKG Anesthesia Assessment and Plan Anesthesia History Personal History: No History of Anesthesia Complications Family History: No Family History of Anesthesia Complications Exercise Tolerance Exercise Tolerance: Metabolic Equivalents>4 Pertinent Negatives Pertinent Negatives: No Symptoms of GERD, No Major Cardiovascular Symptoms or Complaints, No Major Pulmonary Symptoms or Complaints and No History of CVA/TIA Cardiac & Pulmonary Exam Cardiac Exam: Normal S1/S2 Heart Sounds Pulmonary Exam: Clear Bilateral Breath Sounds Implantable Cardiac Device Does patient have a Pacemaker or an ICD?: No Airway Exam Known Difficult Airway: No Mallampati Class: 4 Mouth Opening: Normal (> 3cm) Thyromental Distance: Greater than 3 cm Facial Hair: Full Lorenz Neck Range of Motion: Full ROM Neck Circumference: Normal Teeth Condition: Normal Dentition ASA Classification ASA Score: ASA 2 Emergency Case?: No NPO Status NPO Status: NPO Clears >2 hours, Solids >8 hours Anesthesia Plan Resuscitation Status: Full Code Anesthesia Technique: General Anesthesia Airway Planned: Endotracheal Tube Pain Management: Surgeon and patient request nerve block Monitors Used: Standard Monitors
[2025-08-25] VITALS (24 sets, daily range): BP systolic 84–164; BP diastolic 43–139; PULSE 55–108; RESP 10–27; TEMP 36.1–37; O2SAT 89–100; BMI 33.9
--- NOTE | 2025-08-25 07:16 | W.PM.DSUDISC ---
Date of service: 08/25/25 Discharge Plan Disposition Patient Disposition: Home Condition: Stable Discharge Details Attending Provider: Álvaro Luong Primary Care Provider: Naldo Daily Home Meds and New Rx's Prescriptions: New naproxen 250 mg tablet 250 - 500 mg PO BID PRN (Reason: moderate pain and swelling) Qty: 40 0RF oxycodone 5 mg tablet 5 - 10 mg PO .q4-6h MDD 30 mg PRN (Reason: severe pain) Qty: 18 0RF Continued lisinopril 20 mg tablet 20 mg PO HS Qty: 90 3RF amlodipine 10 mg tablet 10 mg PO HS esomeprazole magnesium 40 mg capsule,delayed release(DR/EC) 40 mg PO HS Discharge Instructions Additional Instructions: Surgery: Left distal biceps tendon repair (subacute, severely retracted) 08/25/25 Activity: Light use hand and fingers okay. Keep elbow bent/ flexed 90 degrees for 2 weeks and then slowly extend to full over the next 4 weeks. Use the sling for support for 6 weeks. Avoid reaching with the elbow straight, lifting more than a couple pounds, or resisted supination of the forearm for 8 weeks. A physical therapy prescription will be sent electronically at follow up to start around 3 weeks postop. CONSERVATIVE protocol. Conservative PT protocol: Maintain elbow 90 degrees flexion for 2 weeks Gradual progression to full active range of motion weeks 2?6 Isometrics after 8 weeks Concentric strengthening after 12 weeks Eccentric strengthening after 16 weeks Prescriptions: Naproxen 250 mg take 1-2 every 12 hours with a meal as needed for moderate pain Oxycodone 5 mg take 1-2 every 4-6 hours as needed for severe pain You may use [id number] Tylenol (acetaminophen) as needed for mild pain. These pain medications may be taken all at once or in different combinations as needed. Also, recommend Colace (docusate) as a stool softener as surgery and pain medicine cause constipation. You may try [id number] diphenhydramine (Benadryl) 25-50 mg nightly as a sleep aid Dressings: Leave splint and dressing in place until follow-up. Keep clean and dry at all times. Follow-up: 10-[address] Luong You may take off the leg compression stockings this evening at home. You may also leave them on a few days longer if you have a history of leg swelling or edema. Let us know right away if you develop any redness, drainage, fevers, chest pain, or trouble breathing. Do not drink alcohol or drive for at least 24 hours after anesthesia. Please call the office during business hours with any questions or concerns. Stand Alone Forms: Portal Information Discharge Orders Discharge Orders: Discharge Order (Routine); Ordered 08/25/25 Ordered By: Luma Auguste DS: Diagnosis Discharge Diagnosis (1) Traumatic rupture of left distal biceps tendon: Status: Acute
--- NOTE | 2025-08-25 07:52 | W.PM.OP ---
Operative Note Operative Note PRE-OP DIAGNOSIS: Severely retracted subacute left distal biceps tendon rupture POST-OP DIAGNOSIS: same PROCEDURE: Left distal biceps tendon repair CPT #79500 SURGEON: Álvaro Luong MARINE EQUIPMENT RESEARCH ENGINEER: Luma Auguste ANESTHESIA TYPE: Local By Surgeon, General LMA/ETT and Primary Nerve Block Refer to Anesthesia Record ESTIMATED BLOOD LOSS: 10 COMPLICATIONS: None Patient was transported to: PACU Patient's condition: stable Implants: Arthrex distal biceps button Indications: Please see complete medical record for details. Findings: Severely retracted subacute distal biceps tendon rupture. Able to be retrieved through second incision, normal?appearing hematoma evacuated, tendon somewhat encapsulated and curled/rolled up. Scarring adhesions released around muscle and tendon from neurovascular structures meticulously carefully. With steady traction and downward pressure able to deliver to the distal incision. Fiber looped multiply down up down for added strength and tested. Able to be delivered and secured into the socket at about 90 degrees of flexion and the repair tails passed back through the tendon tied and then passed again and tied again for as much added security as possible. The muscle was not under undue tension but the arm is maintained flexed near 90 degrees and placed into a plaster splint. Radial pulse are readily palpable. Excellent strong repair especially given the setting, which may have needed reconstruction. Will rehab conservatively. Procedure Description: In the operating room, general anesthesia was induced. The patient was positioned supine on the operating room table. All bony prominences were well-padded. Preoperative antibiotics were administered. The left arm and forearm were prepped and draped in the usual sterile fashion. The correct patient, procedure, and side of the procedure were all verified prior to incision. The radial tuberosity along the volar proximal forearm was localized fluoroscopically and preinjected with 0.25% bupivacaine containing epinephrine. The obvious biceps deformity retracted up the arm was also preinjected where a second incision might be required. The distal incision was opened as usual taking care to identify preserve and retract neurovascular structures with the forearm maintained supination while largely bluntly dividing tissues and approaching the radial tuberosity. There were several branching veins that had to be ligated. The radial tuberosity was confirmed to be balled and devoid of biceps tendon. The appropriate track was then opened digitally proximally quite readily reaching into the hematoma in the distal forearm and then squeezing and milking evacuated out the distal incision. The tendon could be reached just barely from the distal incision but it was rounded and unable to be retrieved. The arm incision was then opened directly over the palpable retracted biceps tendon. It was released from a rolled up in capsulated position, thoroughly released muscle and tendon adhesions carefully to surround structures, prepared with FiberWire fiber loop very redundant securely and with steady downward traction able to recreate the normal muscle contour and deliver the tendon to the distal incision. The radial tuberosity was once again localized fluoroscopically, the spade tip pin was drilled carefully bicortically and overreamed Uni cortically with the 8 mm low-profile reamer. The repair suture tails were loaded on the biceps button, which was then deployed through the socket and flipped on just the far cortex. With the elbow in about 90 degrees flexion the tendon was then delivered into and onto the prepared socket area. With the elbow maintained bent, the suture repair tails were then passed back up through the tendon FiberLink construct, final tensioning creep removed from the system and knot ties, each repair to help pass back up through the prepared tendon additional distance and then knots tied again for added security. The repair had excellent anatomy and fixation strength. There did not appear to be too much tension on the repair as the muscle had relaxed nicely throughout the distal traction for repair following releases. The elbow was maintained about 90 degrees still to protect the repair for the remainder of the case and splinting. The wounds were copiously irrigated normal saline. The socket had previously been copiously irrigated of all reamings prior to repair. Hemostasis was appropriate. Subcutaneous tissue was well approximated. Subcutaneous was closed and 3-0 Monocryl buried interrupted followed by skin subcuticular 3-0 running. Steri-Strips applied across the incisions followed by Xeroform, gauze, and the elbow was placed into along-arm plaster splint and about 90 degrees flexion. The patient awoke from anesthesia without complication and was transferred to the recovery room in a stable condition. Date of Procedure: 08/25/25
[2025-08-25] MEDS: Lactated Ringers 1,000 ML 30 ML IV (10:05)
[2025-08-25] MEDS: ceFAZolin 3,000 MG in Normal Saline 100 ML 200 MG IV (12:13)
[2025-08-25] MEDS: TRANEXAMIC ACID/SOD. CHL. 1,000 MG/100 ML BAG 600 MG IVPB (12:27)
--- NOTE | 2025-08-25 12:43 | W.ANESNERVE ---
Nerve Block Single Injection Procedure Date and Time Date Performed: 08/25/25 Procedure Start: 11:43 Location Where Procedure Performed Procedure Location: Day Surgery Unit Reason Performed: Postoperative Analgesia Requesting Provider: Álvaro Luong Timeout Performed Timeout Performed: Yes Monitoring Used ECG, Blood Pressure, SpO2 and See EMR for corresponding vital signs Sterility Sterility: Hand Hygiene, Surgical Cap, Surgical Mask, Sterile Gloves and Chlorhexidine Sedation Given During Procedure Sedation Given (Indicate Dose Given): Versed IV Dose:: 2mg Patient Mental Status Patient Mental Status: Sedate with meaningful communication Nerve Block 1st Nerve Block: Laterality: Left Block Type: Supraclavicular Ultrasound Image Saved?: Yes Needle / Catheter Used: 100mm SonoPlex II Local Anesthetic Bolus (Indicate Dose Given): Lidocaine used for local infiltration of skin, Bupivacaine 0.25% Dose:: 10ml and Exparel Dose:: 10ml Additives (Indicate Dose Given): None Ultrasound: Sterile probe cover and gel used Nerve Stimulator: No twitch or parasthesia noted < 0.5 mA Paresthesia: None Procedure Tolerated: No Complications Procedure Outcome: Successful Performed By: Berta Kee Supervised By: Morena Bray
[2025-08-25] MEDS: Bupivacaine 0.25% Pres-Free W/EPI 30 ML VIAL (12:56)
--- NOTE | 2025-08-25 14:03 | DI.RAD_ITS ---
Exam(s) XR ELBOW LT LIMITED EXAM: XR ELBOW LT LIMITED CLINICAL HISTORY: LEFT DISTAL BICEPS RUPTURE. TECHNIQUE: 2D and realtime digital imaging was performed. COMPARISON: MR MR UPPER EXTREMITY LT WO from 08/18/2025 FINDINGS: Please see procedure note for details. Fluoro time: 3.2seconds RADIATION DOSE DELIVERED: duncan Morataya=0.1 mGy
--- NOTE | 2025-08-25 16:12 | W.ANESPOSTOP ---
Postoperative Evaluation Date, Time and Location Date Performed: 08/25/25 Time Performed: 16:00 Patient Location: Day Surgery Unit Vital Signs Most Recent Imported Vital Signs: Most Recent Vital Signs Temp Pulse Resp BP Pulse Ox 36.1 C L 63 15 112/77 95 08/25/25 16:00 08/25/25 16:00 08/25/25 16:00 08/25/25 16:00 08/25/25 16:00 Pain Score Most Recent Pain Score: Most Recent Pain Score Pain Level 2 08/25/25 16:00 Assessment Mental Status: Awake (Alert & Oriented to Patient Baseline) Airway and Respiratory Function: Patent airway with normal (patient baseline) respiratory exam Cardiovascular Function: Hemodynamically Stable Hydration Status: Adequately Hydrated Nausea & Vomiting: No Nausea or Vomiting Pain: Pain is tolerable per patient Peripheral Nerve Block: Regional nerve block not resolved at time of post operative discharge
== END 2025-08-25 16:30 | disposition home or self-care (01) ==
PROVIDERS: PCP Nurse Practitioner Family; Visit Provider Student in an Organized Health Care Education/Training Program
PROC: (CPT 24341; principal; 2025-08-25 11:45)
DX: S46.212A Strain of muscle, fascia and tendon of other parts of biceps, left arm, initial encounter (principal); X58.XXXA Exposure to other specified factors, initial encounter; G89.18 Other acute postprocedural pain
CPT/HCPCS: 24342; 64415; 76000; 73070; J0131; J0665; J0666; J0690; J1100; J1885; J2003; J2250; J2371; J2405; J2704

== ENCOUNTER 2025-08-31 12:33 | Emergency (ER) | payer SELFPAY ==
--- NOTE | 2025-08-31 12:30 | RT.EKG_ITS ---
APPROVED REPORT Exam: Resting ECG Reason for Exam: syncope Patient Location: E HR:63 bpm ECG Measurements Heart Rate 63 AXIS ID 162 P 86 QRSd 91 QRS 22 QT 388 T 77 QTc 396 Conclusion Sinus rhythm...normal P axis, V-rate 60- 99 Nonspecific T abnormalities, lateral leads...T <-0.10mV, I aVL V5 V6 No Occlusion [place]
[2025-08-31 12:35] VITALS: BP 114/83; PULSE 87; RESP 16; TEMP 38.4; O2SAT 96
[2025-08-31 13:57] VITALS: BP 108/85; BP 113/80; PULSE 56; PULSE 92
[2025-08-31] MEDS: Normal Saline 1,000 ML 1000 ML IV (13:58)
[2025-08-31 14:12] LABS: HCT 39.5 % (40.0-50.0); HGB 13.3 g/dL (13.5-17.5); MCH 29.3 pg (27.0-33.0); MCHC 33.7 % (32.0-36.0); MCV 87 fL (80-95); MPV 10.1 fL (8.0-11.0); Platelet Count 292 10^3/uL (130-400); RBC 4.54 10^6/uL (4.36-5.78); RDW 12.9 % (11.8-14.1); RDW-SD 40.7 fL; WBC 13.87 10^3/uL (4.4-10.8)
[2025-08-31 14:14] LABS: Abs Immature Grans 0.07 10^3/uL (0.0-0.06); Immature Grans % 0.5 %
[2025-08-31 14:19] LABS: Magnesium 2.0 mg/dL (1.6-2.6)
[2025-08-31 14:20] LABS: ALT 28 U/L (10-49); AST 20 U/L (<34); Albumin 4.5 g/dL (3.2-5.0); Alkaline Phosphatase 92 U/L (46-116); Anion Gap 9.8 mmol/L (3-11); BUN 27 mg/dL (9-23); Bilirubin, Total 0.5 mg/dL (0.2-1.2); CO2 25.2 mmol/L (20.0-31.0); Calcium 9.2 mg/dL (8.3-10.6); Chloride 103 mmol/L (98-107); Glucose 134 mg/dL (74-106); Potassium 4.1 mmol/L (3.5-5.1); Sodium 138 mmol/L (136-145); Total Protein 7.6 g/dL (5.7-8.2)
[2025-08-31 14:23] LABS: TSH (W/Ref FT4) 1.25 uIU/mL (0.55-4.78)
[2025-08-31 14:50] LABS: COVID-19 PCR Negative (Negative); RSV PCR Negative (Negative)
--- NOTE | 2025-08-31 15:36 | W.ED.GENAD ---
Discharge Plan Disposition Patient Disposition: Home Condition: Stable Discharge Details Clinical Impression: Syncope, Nicotine abuse Primary Care Provider: Naldo Daily ED Provider: Basim Capellan Home Meds and New Rx's Prescriptions: Continued lisinopril 20 mg tablet 20 mg PO HS Qty: 90 3RF amlodipine 10 mg tablet 10 mg PO HS esomeprazole magnesium 40 mg capsule,delayed release(DR/EC) 40 mg PO HS oxycodone 5 mg tablet 5 - 10 mg PO .q4-6h MDD 30 mg PRN (Reason: severe pain) Qty: 18 0RF Discharge Instructions Instructions: Fainting, Adult ED Additional Instructions: Please refrain from driving for the next day Go home and rest Talk to your doctor about an outpatient Holter monitor Please follow tobacco pouch recommendations Stand Alone Forms: Portal Information Referrals: Naldo Daily, APPLICATION SYSTEMS ARCHITECT [Primary Care Provider, Medicine] Discharge Data Discharge Date/Time-TO BE ENTERED AT DEPARTURE: 08/31/25 17:03 HPI General Date/Time Provider Initiated Documentation: 08/31/25 12:54. HPI Narrative: This 60-year-old male presents with report of a syncopal event. He was riding in a truck with his son when he took 2 Zyn patches of nicotine. Patient states he is typically only supposed to take 1 that he has never taken 2 doses before. Approximately 15 minutes after taking both he felt lightheaded, weak, and had an episode of syncope which lasted approximately 1 minute. He has had prior episode of syncope denies any chest pain or shortness of breath associated. He felt fine when he woke up. There is no seizure-like activity and he denies any injuries associated. He was a passenger in the vehicle. He denies any regular alcohol consumption. He felt fine prior to taking these Zyn patches and is asymptomatic at this time. He did have recent surgery on his left elbow. He denies any complications associated with this denies any swelling chest pain or shortness of breath associated. Related Data Home Medications ?Medication ?Instructions ?Recorded ?Confirmed lisinopril 20 mg tablet 20 mg PO HS #90 tabs 07/29/24 08/31/25 amlodipine 10 mg tablet 10 mg PO HS 08/24/25 08/31/25 esomeprazole magnesium 40 mg 40 mg PO HS 08/24/25 08/31/25 capsule,delayed release oxycodone 5 mg tablet 5 - 10 mg (1 - 2 x 5 mg) PO .q4-6h 08/25/25 08/31/25 PRN severe pain #18 tabs Previous Rx's ?Medication ?Instructions ?Recorded lisinopril 20 mg tablet 20 mg PO HS #90 tabs 07/29/24 oxycodone 5 mg tablet 5 - 10 mg (1 - 2 x 5 mg) PO .q4-6h 08/25/25 PRN severe pain #18 tabs Allergies Allergy/AdvReac Type Severity Reaction Status Date / Time shellfish derived Allergy Severe THROAT Verified 08/31/25 12:41 CLOSES General Stated Complaint: Dizzy/Sync BENNY: 3 Exam Narrative Exam Narrative: Alert and oriented 60-year-old male in no acute distress, pupils equal round reactive to light and accommodation nonfocal neurological assessment cranial nerves II through XII intact cardiac rate rhythm regular lungs clear to auscultation answering questions appropriately no tongue injury no incontinence of urine visualized, no abdominal tenderness Course Vital Signs Vital signs: Vital Signs Temperature 38.4 C H 08/31/25 12:35 Pulse 87 08/31/25 12:35 Respiratory Rate 16 08/31/25 12:35 Blood Pressure 114/83 08/31/25 12:35 Pulse Oximetry 96 08/31/25 12:35 Temperature 38.4 C H 08/31/25 12:35 Temperature Source Temporal Artery Scan 08/31/25 12:35 Pulse 56 L 08/31/25 13:57 Respiratory Rate 16 08/31/25 12:35 Respiratory Effort Normal, Non-Labored 08/31/25 14:10 Respiratory Depth Normal 08/31/25 14:10 Respiratory Pattern Normal 08/31/25 14:10 Blood Pressure 113/80 08/31/25 13:57 Blood Pressure Position Sitting 08/31/25 12:35 Pulse Oximetry 96 08/31/25 12:35 Oxygen Delivery Method Room Air 08/31/25 12:35 Oxygen Flow Rate 0 08/31/25 12:35 Pain Level 0 08/31/25 12:35 Lab/Test Results Lab/Test Results: Laboratory Tests Range/Units 08/31/25 08/31/25 12:45 13:45 WBC (4.4-10.8) 10^3/uL 13.87 H RBC (4.36-5.78) 10^6/uL 4.54 Hgb (13.5-17.5) g/dL 13.3 L Hct (40.0-50.0) % 39.5 L MCV (80-95) fL 87 MCH (27.0-33.0) pg 29.3 MCHC (32.0-36.0) % 33.7 RDW (11.8-14.1) % 12.9 Plt Count (130-400) 10^3/uL 292 MPV (8.0-11.0) fL 10.1 Immature Gran % % 0.5 Neutrophils % % 85.9 Lymphocytes % % 8.6 Monocytes % % 4.7 Eosinophils % % 0.1 Basophils % % 0.2 Nucleated RBC % (0.0-0.3) % 0.0 Absolute Neutrophils (1.2-6.7) 10^3/uL 11.91 H Absolute Lymphocytes (1.2-3.4) 10^3/uL 1.19 L Absolute Monocytes (0.1-0.8) 10^3/uL 0.65 Absolute Eosinophils (0.0-0.7) 10^3/uL 0.02 Absolute Basophils (0.0-0.2) 10^3/uL 0.03 Sodium (136-145) mmol/L 138 Potassium (3.5-5.1) mmol/L 4.1 Chloride (98-107) mmol/L 103 Carbon Dioxide (20.0-31.0) mmol/L 25.2 Anion Gap (3-11) mmol/L 9.8 BUN (9-23) mg/dL 27 H Creatinine (0.73-1.18) mg/dL 1.13 Est GFR (CKD-EPI 2020) (mL/min/1.73m2) 66.18 Glucose (74-106) mg/dL 134 H Calcium (8.3-10.6) mg/dL 9.2 Magnesium (1.6-2.6) mg/dL 2.0 Total Bilirubin (0.2-1.2) mg/dL 0.5 AST (<34) U/L 20 ALT (10-49) U/L 28 Alkaline Phosphatase (46-116) U/L 92 Total Protein (5.7-8.2) g/dL 7.6 Albumin (3.2-5.0) g/dL 4.5 TSH (0.55-4.78) uIU/mL 1.25 COVID-19 Source Nasopharynx SARS-CoV-2 (PCR) (Negative) Negative Influenza Type A (PCR) (Negative) Negative Influenza Type B (PCR) (Negative) Negative RSV (PCR) (Negative) Negative Medical Decision Making Results: CBC, CMP, troponin do not show evidence of acute abnormality, EKG does not show significant abnormality lateral leads have slight flattening although patient has no chest pain and initial troponin negative, will pend repeat troponin Assessment and plan: Patient presents with syncope after taking 2 ZYN patches of nicotine, has not previously taken 2 patches and recommended doses 1 patch. He immediately felt weak and dizzy and had a syncopal event. He did have tunnel vision. He has previously had a syncopal event but has been for several years per patient. At time of my assessment, he is alert, oriented, he is of decisional capacity. His troponin was negative and his labs do not show concerning signs or symptoms, initially he presented with what we thought was a fever however he was wearing a hat and on tympanic he has a temp of 97.3. I see no obvious source of infection. There is been no obvious dysrhythmia care transition to Talha Capellan pending repeat troponin would likely discharge home outpatient Holter monitor and nicotine cessation encouraged Quality:SDOH Health Related Social Needs: Health related social needs material hardship PFSH All Active Problems (Updated 08/31/25 @ 16:10 by ABELINO Robles) Nicotine abuse (Acute) Syncope (Chronic) Traumatic rupture of left distal biceps tendon (Acute 07/24/25) s/p Left distal biceps tendon repair (subacute, severely retracted) 08/25/25 Unilateral edema of lower extremity (Acute) Adenomatous colon polyp (Acute) repeat CE in 2026 Esophageal ulcer without bleeding (Acute) Erosive esophagitis (Acute) Chronic GERD (Acute) Tubular adenoma (Acute ~01/24/22) Repeat colonoscopy in 2026 BPH (benign prostatic hyperplasia) (Chronic) Tobacco use disorder (Acute) chews Obesity (Acute) Essential hypertension (Acute) Medical History (Updated 08/31/25 @ 16:10 by ABELINO Robles) Left ureteral stone Small bowel obstruction Surgical History (Updated 08/25/25 @ 14:50 by ABELINO Becerra) History of esophagogastroduodenoscopy (EGD) (~01/24/22) History of colonoscopy with polypectomy (~01/24/22) History of arthroscopy of knee Arthroplasty of knee (~2005) meniscus repair Arthroscopy left wrist DeQuervain's release Social History (Updated 01/17/22 @ 10:02 by ABELINO Carlton) Smoking/Tobacco Use Status: Current every day Tobacco Type: smokeless tobacco Smoking risk assessment performed?: Yes Alcohol Intake: current Alcohol Intake frequency: other Alcohol type: beer Drug use: Never Substance use type: does not use Counseling given: No Housing: house Do you feel safe at home: Yes Do you feel safe in your relationship?: Yes
[2025-08-31 15:37] VITALS: BP 124/74; PULSE 55; RESP 20; O2SAT 95
[2025-08-31 15:37] LABS: Troponin I < 3 ng/L (<54)
[2025-08-31 15:51] LABS: Troponin I < 3 ng/L (<54)
--- NOTE | 2025-08-31 16:24 | W.EDPROG ---
Date of service: 08/31/25 Time of Service: 16:24 Medical Decision Making This dictation utilizes [id number] dictation software and may contain unedited grammatical errors. Patient seen in signout from Afshan Washington PA-C, please see her note. Essentially this 60-year-old male passed out after he took 2 Sudhir pouches, denied any palpitations or chest pain around the event, his laboratory workup is benign EKG is benign and we are awaiting a repeat troponin. Patients' medical history: History of SBO, GERD, BPH, obesity, tobacco use, hypertension. Family and social history: Tobacco use. Differential / pathologies of concern include vagovagal syncope, less likely ACS. Diagnostic studies of: -Awaiting repeat troponin, which is flat and negative. Interventions of: - None after signout. ED Course/Assessment/Plan: Patient signed out to me awaiting repeat troponin written for discharge for likely vasovagal syncope, he had a syncopal event after using 2 Sudhir pouches of nicotine at the same time, he is low risk on syncope score and heart score, reasonable for outpatient follow-up and was discharged as planned with negative repeat troponin. Findings not consistent with electrolyte abnormality, ACS. Disposition of Nicotine Abuse, Syncope. Patient verbalized understanding of the plan and return to ED criteria and engaged in shared decision making. Medical Records Medical records reviewed: Yes I reviewed the patient's medical records. Lab Data Lab results reviewed: Yes I reviewed the patient's lab results. Labs: Laboratory Tests Range/Units 08/31/25 08/31/25 08/31/25 12:45 13:15 13:45 WBC (4.4-10.8) 10^3/uL 13.87 H RBC (4.36-5.78) 10^6/uL 4.54 Hgb (13.5-17.5) g/dL 13.3 L Hct (40.0-50.0) % 39.5 L MCV (80-95) fL 87 MCH (27.0-33.0) pg 29.3 MCHC (32.0-36.0) % 33.7 RDW (11.8-14.1) % 12.9 Plt Count (130-400) 10^3/uL 292 MPV (8.0-11.0) fL 10.1 Immature Gran % % 0.5 Neutrophils % % 85.9 Lymphocytes % % 8.6 Monocytes % % 4.7 Eosinophils % % 0.1 Basophils % % 0.2 Nucleated RBC % (0.0-0.3) % 0.0 Absolute Neutrophils (1.2-6.7) 10^3/uL 11.91 H Absolute Lymphocytes (1.2-3.4) 10^3/uL 1.19 L Absolute Monocytes (0.1-0.8) 10^3/uL 0.65 Absolute Eosinophils (0.0-0.7) 10^3/uL 0.02 Absolute Basophils (0.0-0.2) 10^3/uL 0.03 Sodium (136-145) mmol/L 138 Potassium (3.5-5.1) mmol/L 4.1 Chloride (98-107) mmol/L 103 Carbon Dioxide (20.0-31.0) mmol/L 25.2 Anion Gap (3-11) mmol/L 9.8 BUN (9-23) mg/dL 27 H Creatinine (0.73-1.18) mg/dL 1.13 Est GFR (CKD-EPI 2020) (mL/min/1.73m2) 66.18 Glucose (74-106) mg/dL 134 H Calcium (8.3-10.6) mg/dL 9.2 Magnesium (1.6-2.6) mg/dL 2.0 Total Bilirubin (0.2-1.2) mg/dL 0.5 AST (<34) U/L 20 ALT (10-49) U/L 28 Alkaline Phosphatase (46-116) U/L 92 Troponin I (<54) ng/L < 3 < 3 Total Protein (5.7-8.2) g/dL 7.6 Albumin (3.2-5.0) g/dL 4.5 TSH (0.55-4.78) uIU/mL 1.25 COVID-19 Source Nasopharynx SARS-CoV-2 (PCR) (Negative) Negative Influenza Type A (PCR) (Negative) Negative Influenza Type B (PCR) (Negative) Negative RSV (PCR) (Negative) Negative Quality:SDOH Health Related Social Needs: Health related social needs material hardship Discharge Plan Disposition Patient Disposition: Home Condition: Stable Discharge Details Clinical Impression: Syncope, Nicotine abuse Primary Care Provider: Naldo Daily ED Provider: Basim Capellan Home Meds and New Rx's Prescriptions: Continued lisinopril 20 mg tablet 20 mg PO HS Qty: 90 3RF amlodipine 10 mg tablet 10 mg PO HS esomeprazole magnesium 40 mg capsule,delayed release(DR/EC) 40 mg PO HS oxycodone 5 mg tablet 5 - 10 mg PO .q4-6h MDD 30 mg PRN (Reason: severe pain) Qty: 18 0RF Discharge Instructions Instructions: Fainting, Adult ED Additional Instructions: Please refrain from driving for the next day Go home and rest Talk to your doctor about an outpatient Holter monitor Please follow tobacco pouch recommendations Stand Alone Forms: Portal Information Referrals: Naldo Daily, CERTIFIED MEDICAL BILLER [Primary Care Provider, Medicine]
== END 2025-08-31 17:03 | disposition home or self-care (01) ==
PROVIDERS: Physician Assistant; Emergency Provider Physician Assistant; PCP Nurse Practitioner Family
DX: R55 Syncope and collapse (principal); Z72.0 Tobacco use; Z59.87 Material hardship due to limited financial resources, not elsewhere classified
CPT/HCPCS: 00123; 36415; 36416; 80053; 82962; 87637; 93005; 96360; 99284; 83735; 84443; 84484; 85025; 93010; 99283